=== PATIENT | male | born 1970 | race Caucasian/White ===

== ENCOUNTER 2018-08-05 16:13 | Inpatient (IN) ==
[2018-08-05] MEDS ORDERED: LORazepam 2 MG/4 ML VIAL ONE (16:32)
[2018-08-05] MEDS ORDERED: LORazepam 1 MG/2 ML VIAL IV STA (16:33)
[2018-08-05 17:13] LABS: Hemoglobin 13.7 g/dL (14.0-18.0); Mean Corpuscular Hgb Conc 34.3 g/dL (32-36); Mean Corpuscular Volume 90.5 fL (80-100); Mean Platelet Volume 11.5 fL (7.4-10.4); Platelet Count 114 K/uL (130-400); RDW Coefficient of Variation 12.8 % (11.5-14.5); RDW Standard Deviation 42.7 fL (36.4-46.3); Red Blood Count 4.42 M/uL (4.7-6.1)
[2018-08-05 17:35] LABS: Albumin Level 4.4 gm/dl (3.4-5.0); BUN Creatinine Ratio 7.5 (10-20); Calcium 9.1 mg/dl (8.5-10.1); Creatinine Clr Calc Pharmacy 32.3 ml/min; Est GFR (African American) 26.1; Est GFR (Non-African American) 22.5; Magnesium 2.4 mg/dl (1.8-2.4); Potassium 3.1 mmol/L (3.5-5.1)
[2018-08-05 17:38] LABS: Albumin Globulin Ratio 1.3 (0.9-2); Bilirubin,Total 1.2 mg/dl (0.2-1); Globulin 3.4 gm/dl (2.5-4.0); Total Protein 7.8 gm/dl (6.4-8.2)
[2018-08-05 17:47] LABS: Basophils # (auto) 0.04 K/uL (0-0.2); Basophils % (auto) 0.2 %; Eosinophils # (auto) 0.11 K/uL (0-0.5); Eosinophils % (auto) 0.5 %; Immature Granulocytes # (auto) 0.22 K/uL (0.00-0.02); Lymphocytes # (auto) 1.81 K/uL (1.2-3.4); Monocytes # (auto) 0.94 K/uL (0.11-0.59); Monocytes % (auto) 4.1 %; Neutrophils # (auto) 19.58 K/uL (1.4-6.5); Neutrophils % (auto) 86.2 %
--- NOTE | 2018-08-05 17:58 | CT Scan Report ---
CT OF THE HEAD WITHOUT CONTRAST CLINICAL HISTORY: Seizure. Weakness. COMPARISON STUDY: No previous studies for comparison. CT DOSE: 1160.96 mGy.cm TECHNIQUE: Helical axial images of the head were obtained without IV contrast. Automated exposure con trol was utilized for the study. A dose lowering technique was utilized adhering to the principles o f ALARA. FINDINGS: No acute intracranial hemorrhage, midline shift or mass effect is present. Brain volume is normal. Ventricular system is normal. The basilar cisterns are patent. There are no extra-axial colle ctions. Note is made of a 2.1 x 0.7 cm CSF attenuation focus overlying the posterior left frontal lob e. This may reflect a small arachnoid cyst. There is a 1.2 cm hypodensity within the left thalamus. N ote is made of a 1.7 cm hypodensity within the posterior limb of the left internal capsule. There are no significant calvarial abnormalities. Note is made of a 2.3 cm lipoma within the frontal scalp. IMPRESSION: 1. No acute intracranial hemorrhage or mass effect. 2. 1.2 cm hypodensity within the left thalamus. Although indeterminate, this favors a subacute to chr onic infarct. Correlation with prior imaging studies, if available, is recommended. In the absence of prior studies, an MRI of the brain with and without contrast is recommended. 3. 1.7 cm hypodensity within the posterior limb of the left internal capsule favors an old lacunar in farct or prominent perivascular space. 4. 2.1 x 0.7 cm CSF attenuation focus overlying the posterior left frontal lobe which favors an arach noid cyst. Electronically signed by: Ashkan Saldivar M.D. 08/05/2018 5:57 PM
[2018-08-05] MEDS ORDERED: LABETALOL HCL IV 5 MG/ML 20ML IV PRN (18:27)
--- NOTE | 2018-08-05 18:38 | Emergency Department Note ---
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 Per EMS, the patient was at the [facility] in [place] when he had a seizure. They note the patient is homeless. EMS states the patient's friend told them he had a headache for the past week. EMS states the friend's of the patient state the patient did not have any trauma today. EMS states the patient had recovered from his seizure and then had another seizure in the ambulance. EMS states the patient was moving all his extremities in the ambulance. EMS notes the patient was very hypertensive and he was not drinking today. EMS states the patient denied any chest pain or abdominal pain. 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 EMS notes the patient stated he smokes a pack a day. HPI is limited because the patient is sleeping. Home Medications Home Medications Medication Instructions Recorded Confirmed Type Unobtainable 08/05/18 08/05/18 History Allergies Allergy/AdvReac Type Severity Reaction Status Date / Time No Known Allergies Allergy Unverified 08/05/18 21:03 Past Med/Surg History Family History Other Family history non-contributory Social History Current Living Situation: Homeless and Other Current Living Situation Comment: lives with friend Saima García Feels Safe at Home: Yes Smoking Status: Heavy tobacco smoker Hx Alcohol Use: No Hx Substance Use: No Beliefs That Will Affect Care: None Preferred Language: Senegalese Fast Brim Pouncer Required: No Review of Systems See HPI for pertinent positives & negatives. and A total of 10 systems reviewed and were otherwise negative Physical Exam Vital Signs Vital Signs - 24 hr 08/05/18 16:56 08/05/18 17:40 08/05/18 18:35 Temperature Temperature Source Sepsis Recent Fever Within 48 Hours No Sepsis Action Taken by Nursing No Action Required Pulse Rate 119 H Pulse Rate [Right Finger] 90 90 Respiratory Rate 26 H 22 19 Respiratory Effort / Characteristics Respiratory Depth Blood Pressure 245/160 H Blood Pressure [Right Arm] 218/138 H 209/132 H Blood Pressure Mean 188 Blood Pressure Mean [Right Arm] 164 157 Blood Pressure Position [Right Arm] Lying Pulse Oximetry 91 92 98 Oxygen Delivery Method 08/05/18 19:07 08/05/18 19:52 08/05/18 20:31 Temperature 36.4 C L 36.8 C Temperature Source Oral Oral Sepsis Recent Fever Within 48 Hours Sepsis Action Taken by Nursing Pulse Rate 79 Pulse Rate [Right Finger] 77 74 Respiratory Rate 19 19 18 Respiratory Effort / Characteristics Non-Labored Spontaneous Respiratory Depth Normal Blood Pressure 195/117 H Blood Pressure [Right Arm] 212/134 H 231/137 H Blood Pressure Mean Blood Pressure Mean [Right Arm] 160 168 Blood Pressure Position [Right Arm] Pulse Oximetry 99 96 98 Oxygen Delivery Method Room Air Room Air General: Disheveled middle-age male. Patient is non-verbally responsive. He is movig all 4 extremities and starting to wake up. Patient has purposeful movements and has not active seizure. HEENT: Normal cephalic atraumatic. Pupils are equal round and reactive to light. Extraocular movements are intact. Oropharynx is pink with moist mucous membranes. No swelling of the mouth lips or tongue. Neck: Supple with a midline trachea. No meningeal signs or stiffness, no JVD or bruits. No Stridor. Chest: Clear to auscultation bilaterally. No wheezes or rhonchi. No increased work of breathing. Heart: regular rate and rhythm. Abdomen: Soft nontender, nondistended without rebound guarding or rigidity. Extremities: No cyanosis clubbing or edema. No calf tenderness or assymetry Spine/Back. Non tender to palpation. No CVA tenderness Skin: Good turgor without rashes. Neurologic exam: Cranial nerves two through 12 are intact. Motor and sensation are intact and symmetrical throughout. Course 161: Past medical records reviewed. The patient was evaluated in room C6, and a complete history and physical examination were performed. 1631: I reevaluated the patient. He is currently sleeping and starting to get combative. 1655: I reevaluated the patient. He is talking, awake, and looks better. He denies drinking any alcohol for a while. He states he did not drink today. He notes he does not have a seizure history. He states he does not have suicidal ideations and does not do drugs. 180: I reevaluated the patient. His blood pressure is still elevated but is trending downwards. He was sleeping. I woke him up and he looks less confused. 1819: I reviewed the patient's case with Dr. Ashok Grant Hospitalist. He will evaluate the patient for further management. 1837: Juanita team is currently evaluating the patient. 1924: I reevaluated the patient. He has not had any more seizures and is afebrile. Administered Medications Dextrose/Sodium Chloride (D5w And 1/2nss) 1,000 mls @ 80 mls/hr IV .[id number] ROGER Stop: 09/04/18 20:29 Last Admin: 08/05/18 21:12 Dose: 80 mls/hr Labetalol HCl (Normodyne) 10 mg IV Q6H PRN PRN Reason: blood pressure above 180/120 Stop: 09/04/18 18:26 Last Admin: 08/05/18 21:13 Dose: 10 mg Discontinued Medications Lorazepam (Ativan) 1 mg in 2 mls @ 2 mls/min IV NOW STA Stop: 08/05/18 16:34 Last Admin: 08/05/18 16:47 Dose: 2 mls/min Levetiracetam 1,000 mg/ (Dextrose) 110 mls @ 440 mls/hr IV NOW STA Stop: 08/05/18 17:17 Last Infusion: 08/05/18 17:46 Dose: 0 mls/hr Admin: 08/05/18 17:27 Dose: 440 mls/hr Potassium Chloride (K Daniel / Wtr) 10 meq in 100 mls @ 100 mls/hr IV Q1H STA Stop: 08/05/18 20:23 Last Infusion: 08/05/18 21:31 Dose: 0 mls/hr Admin: 08/05/18 20:07 Dose: 100 mls/hr Infusion: 08/05/18 20:07 Dose: 100 mls/hr Admin: 08/05/18 20:02 Dose: 100 mls/hr Labetalol HCl (Normodyne) Confirm Administered Dose 5 mg IV .STK-MED ONE Stop: 08/05/18 18:42 Last Admin: 08/05/18 19:04 Dose: 10 mg Lorazepam (Ativan) Confirm Administered Dose 2 mg .ROUTE .STK-MED ONE Stop: 08/05/18 16:33 Last Admin: 08/05/18 16:47 Dose: Not Given Miscellaneous Information (Patient's Allergy Info Needs Entered) 1 ea N/A Q30M ROGER Stop: 09/04/18 20:14 Last Admin: 08/05/18 21:42 Dose: 1 ea Admin: 08/05/18 21:04 Dose: 1 ea Medical Decision Making Differential Diagnosis Differential Diagnosis includes: seizure, intracranial process, alcohol use or withdrawal, toxicological process, trauma, and electrolyte or metabolic abnormality. Medical Records Attestation: I reviewed the patient's medical records. Home Medications Current Medication List: was personally reviewed by me Laboratory Data Attestation: I reviewed the patient's lab results. Result diagrams: 08/05/18 16:53 08/05/18 16:53 Lab Results 08/05/18 08/05/18 08/05/18 Range/Units 16:53 16:53 16:53 WBC 22.70 H (4.8-10.8) K/uL RBC 4.42 L (4.7-6.1) M/uL Hgb 13.7 L (14.0-18.0) g/dL Hct 40.0 L (42-52) % MCV 90.5 (80-100) fL MCH 31.0 (25-34) pg MCHC 34.3 (32-36) g/dL RDW Std Deviation 42.7 (36.4-46.3) fL RDW Coeff of Zahraa 12.8 (11.5-14.5) % Plt Count 114 L (130-400) K/uL MPV 11.5 H (7.4-10.4) fL Immature Gran % (Auto) 1.0 % Neut % (Auto) 86.2 % Lymph % (Auto) 8.0 % [place] % (Auto) 4.1 % Eos % (Auto) 0.5 % Baso % (Auto) 0.2 % Immature Gran # (Auto) 0.22 H (0.00-0.02) K/uL Neut # (Auto) 19.58 H (1.4-6.5) K/uL Lymph # (Auto) 1.81 (1.2-3.4) K/uL [place]ima # (Auto) 0.94 H (0.11-0.59) K/uL Eos # (Auto) 0.11 (0-0.5) K/uL Baso # (Auto) 0.04 (0-0.2) K/uL Sodium 134 L (136-145) mmol/L Potassium 3.1 L (3.5-5.1) mmol/L Chloride 98 (98-107) mmol/L Carbon Dioxide 18 L (21-32) mmol/L Anion Gap 18.0 H (3-11) BUN 24 H (7-18) mg/dl Creatinine 3.14 H (0.6-1.4) mg/dl Est Cr Clr Drug Dosing 32.3 ml/min Est GFR ( Amer) 26.1 Est GFR (Non-Af Amer) 22.5 BUN/Creatinine Ratio 7.5 L (10-20) Glucose 187 H (70-99) mg/dl Lactate (0.4-2.0) mmol/L Calcium 9.1 (8.5-10.1) mg/dl Magnesium 2.4 (1.8-2.4) mg/dl Total Bilirubin 1.2 H (0.2-1) mg/dl AST 33 (15-37) U/L ALT 22 (12-78) U/L Alkaline Phosphatase 106 (45-117) U/L Total Creatine Kinase (39-308) U/L Total Protein 7.8 (6.4-8.2) gm/dl Albumin 4.4 (3.4-5.0) gm/dl Globulin 3.4 (2.5-4.0) gm/dl Albumin/Globulin Ratio 1.3 (0.9-2) Ethyl Alcohol mg/dL < 3.0 (0-3) mg/dl 08/05/18 08/05/18 Range/Units 16:53 18:45 WBC (4.8-10.8) K/uL RBC (4.7-6.1) M/uL Hgb (14.0-18.0) g/dL Hct (42-52) % MCV (80-100) fL MCH (25-34) pg MCHC (32-36) g/dL RDW Std Deviation (36.4-46.3) fL RDW Coeff of Zahraa (11.5-14.5) % Plt Count (130-400) K/uL MPV (7.4-10.4) fL Immature Gran % (Auto) % Neut % (Auto) % Lymph % (Auto) % [place]ima % (Auto) % Eos % (Auto) % Baso % (Auto) % Immature Gran # (Auto) (0.00-0.02) K/uL Neut # (Auto) (1.4-6.5) K/uL Lymph # (Auto) (1.2-3.4) K/uL Pima # (Auto) (0.11-0.59) K/uL Eos # (Auto) (0-0.5) K/uL Baso # (Auto) (0-0.2) K/uL Sodium (136-145) mmol/L Potassium (3.5-5.1) mmol/L Chloride (98-107) mmol/L Carbon Dioxide (21-32) mmol/L Anion Gap (3-11) BUN (7-18) mg/dl Creatinine (0.6-1.4) mg/dl Est Cr Clr Drug Dosing ml/min Est GFR ( Amer) Est GFR (Non-Af Amer) BUN/Creatinine Ratio (10-20) Glucose (70-99) mg/dl Lactate 2.5 H* (0.4-2.0) mmol/L Calcium (8.5-10.1) mg/dl Magnesium (1.8-2.4) mg/dl Total Bilirubin (0.2-1) mg/dl AST (15-37) U/L ALT (12-78) U/L Alkaline Phosphatase (45-117) U/L Total Creatine Kinase 171 (39-308) U/L Total Protein (6.4-8.2) gm/dl Albumin (3.4-5.0) gm/dl Globulin (2.5-4.0) gm/dl Albumin/Globulin Ratio (0.9-2) Ethyl Alcohol mg/dL (0-3) mg/dl Imaging Data Radiologist's Impression: Radiology results as stated below per my review and the radiologist's interpretation: CT OF THE HEAD WITHOUT CONTRAST CLINICAL HISTORY: Seizure. Weakness. COMPARISON STUDY: No previous studies for comparison. CT DOSE: 1160.96 mGy.cm TECHNIQUE: Helical axial images of the head were obtained without IV contrast. Automated exposure control was utilized for the study. A dose lowering technique was utilized adhering to the principles of ALARA. FINDINGS: No acute intracranial hemorrhage, midline shift or mass effect is present. Brain volume is normal. Ventricular system is normal. The basilar cisterns are patent. There are no extra-axial collections. Note is made of a 2.1 x 0.7 cm CSF attenuation focus overlying the posterior left frontal lobe. This may reflect a small arachnoid cyst. There is a 1.2 cm hypodensity within the left thalamus. Note is made of a 1.7 cm hypodensity within the posterior limb of the left internal capsule. There are no significant calvarial abnormalities. Note is made of a 2.3 cm lipoma within the frontal scalp. IMPRESSION: 1. No acute intracranial hemorrhage or mass effect. 2. 1.2 cm hypodensity within the left thalamus. Although indeterminate, this favors a subacute to chronic infarct. Correlation with prior imaging studies, if available, is recommended. In the absence of prior studies, an MRI of the brain with and without contrast is recommended. 3. 1.7 cm hypodensity within the posterior limb of the left internal capsule favors an old lacunar infarct or prominent perivascular space. 4. 2.1 x 0.7 cm CSF attenuation focus overlying the posterior left frontal lobe which favors an arachnoid cyst. Electronically signed by: Ashkan Saldivar M.D. 08/05/2018 5:57 PM ECG Data Attestation: I personally reviewed and interpreted this ECG as follows: Indication: other (seizure) Rate (beats per minute): 86 Rhythm: sinus rhythm Findings: + other (LVH and no prolonged QT at 502) and + nonspecific-ST abn Comparison ECG Date: no prior available Blood Pressure Blood Pressure Findings: Elevated blood pressure Blood Pressure Disposition: further management by hospitalist [facility] Narrative This patient comes in as described above. He apparently was in his usual state of health and went to a bar . he did not drink and then had a seizure and EMS was summoned. he apparently got postictal and confused but then came around and had another seizure. They did give him 2 mg of Versed IV. Upon arrival in the ER he initially is postictal but he is moving all 4 extremities starting to wake up but nonverbal, he has no seizure activity. While he was observed in the ER, he was given additional 1 mg IV Ativan as he was agitated initially but then became cooperative and answering questions appropriately. He denies that he has had any trauma. he has not had any alcohol for quite some time he tells me. Denies drug use or thoughts of hurting himself denies chest pain or shortness of breath. Denies seizure history. He cannot recall when the last time he saw a primary care doctor was. He denies headache or neck pain at present. IV access was established and blood work was obtained EMS did check him and his blood sugar was normal on route he was also had a normal temperature. He is also afebrile here and there is nothing to make me think infection at this point. He has no meningeal signs or stiffness in his neck is freely mobile. He denies a headache at this point. I did a CAT scan of his head there is no acute processes. There some subacute to chronic possible infarcts. The patient's blood pressure was very high initially although he was combative at the time. It is trending down work but may need further treatment . I am concerned that is probably chronically elevated. I am also concerned his renal function is is elevated with a creatinine of 3.1. He does not recall having any kidney problems. EKG does not suggest acute coronary syndrome or arrhythmia. He was loaded with Keppra 1 g IV given the fact that he had 2 seizures prior to arrival. He has been observed in the ER. If he truly has not had alcohol for several weeks this is unlikely related to alcohol. He is not having any tremor to suggest withdrawal but that would still be in consideration. I do think he needs to be admitted/observed for further treatment and evaluation. His blood pressure has been elevated and itis possible that this could be causing his symptoms as well. The admitting team did see him and have ordered some IV labetalol. I do think he needs to have this monitored on the inpatient service as well. Impression & Plan Seizure, Renal failure, Hypertension, Post-ictal state Critical Care Time I have personally spent greater than 30 minutes of critical care time in the direct management of this patient. This includes bedside care, interpretation of diagnostic studies, and testing, discussion with consultants, patient, and family members, and other required patient management activities. This 30 minutes is in excess of all separately billable procedures. Critical Care Time: Yes Total Critical Care Time: 30 Discharge Plan Visit Data *Final* Discharge Date/Time: 08/05/18 19:52 Chief Complaint: Seizure Stated Complaint: SEIZURE ED Provider: Brad Santana Discharge Problem: Seizure, Renal failure, Hypertension, Post-ictal state Patient Disposition: Admitted As Inpatient Discharge Instructions Interventions: ED Discharge Assessment Last Done: 08/05/18 19:52 The scribe's documentation has been prepared under my direction and personally reviewed by me in its entirety. I confirm that the note above accurately reflects all work, treatment, procedures, and medical decision making performed by me.
[2018-08-05] MEDS: LABETALOL HCL IV 5 MG/ML 20ML IV ONE ×2 (19:01→19:04)
--- NOTE | 2018-08-05 19:04 | History & Physical Report ---
Date of Service August 05, 2018 Assessment & Plan (1) Seizure: as per history there was have been seizure x 2 loaded with Keppra 1000 mg will follow creatinine kinase and lactic acid leukocytosis of 22,000 - may be leukocytosis from seizure, will draw blood cultures. is afebrile for now and will hold off antibiotics unless patient spikes fevers blood cultures drawn Hypokalemia: correct hypokalemia of 3.1 - give potassium IV riders check serum magnesium levels admit to telemetry, ICU physician has been informed and updated in cased there is a chance patient needs to be intubated if seizure again neuro checks on telemetry duarte for now aspiration precautions NPO excepts meds/ sips/chips for now speech and swallow evaluation neurology consultation requested obtain echocardiogram PT/OT admission Head CT 1. No acute intracranial hemorrhage or mass effect. 2. 1.2 cm hypodensity within the left thalamus. Although indeterminate, this favors a subacute to chronic infarct. 3. 1.7 cm hypodensity within the posterior limb of the left internal capsule favors an old lacunar infarct or prominent perivascular space. 4. 2.1 x 0.7 cm CSF attenuation focus overlying the posterior left frontal lobe which favors an arachnoid cyst. Questionable old strokes as above outside of window for TPA get lipid panel and HbA1c neuro checks on telemetry duarte for now aspiration precautions NPO excepts meds/ sips/chips for now speech and swallow evaluation neurology consultation requested obtain echocardiogram PT/OT Hypertensive Emergency hypertension may be from seizures initially 235/116 in ED, when seen by hospitalist blood pressure 209/132 give labetalol 10 mg q6 hours when blood presure above 180/120, alternative hydralzine can be used to gently lower blood pressures (2) Renal failure: creatinine 3.14 given lack of recents labs, there is no comparison to see whether this is acute renal failure or chronic kidney disease will give gentle hydration of D5 water 1/2 normal saline Full Code as per my discussion with patient Social Issues patient reports he lives in [place] with female friend Susana Mack patient reports his mother lives in [place] will get Case management History of Present Illness Primary Care Provider: NO PCP History as per ED notes, ER physician, and patient As per ED History and Physical "The patient is a 48 year old male who presents to the Emergency Room with complaints of intermittent seizures. Per EMS, the patient was at the [facility] in [place] when he had a seizure. They note the patient is homeless. EMS states the patient's friend told them he had a headache for the past week. EMS states the friend's of the patient state the patient did not have any trauma today. EMS states the patient had recovered from his seizure and then had another seizure in the ambulance. EMS states the patient was moving all his extremities in the ambulance. EMS notes the patient was very hypertensive and he was not drinking today. EMS states the patient denied any chest pain or abdominal pain. 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 EMS notes the patient stated he smokes a pack a day. HPI is limited because the patient is sleeping." As per ED physician, patient had second seizure in the ED. Patient has been given Keppa 1000 mg IV by ED physician. Also noted to be hypertensive and initially 235/116 when seen by hospitalist blood pressure 209/132 Patient able to speak to hospitalist and offer some history but has trouble with concentration. able to follow directions Patient reports not seeing a doctor in years. denies being on medication. denies alcohol abuse. denies history of alcohol withdrawal. denies history of strokes. denies history of seizures. denies recreational drugs. denies tobacco. denies allergies or family history of of health problems Home Medications Home Medications Medication Instructions Recorded Confirmed Type Unobtainable 08/05/18 08/05/18 History Past Med/Surg History Family History Other Family history non-contributory Social History Feels Safe at Home: Yes Smoking Status: Unknown if ever smoked Review of Systems All systems reviewed & are unremarkable except as noted in HPI & below Physical Exam 2 Vital Signs (Past 24 Hours): Last Vital Signs Pulse 90 08/05/18 18:35 Resp 19 08/05/18 18:35 BP 209/132 H 08/05/18 18:35 Pulse Ox 98 08/05/18 18:35 Eyes: PERRL, conjunctivae normal, anicteric sclerae normal visual tabares by confrontation and EOM intact bilaterally ENMT: external ear and nose normal, oropharynx normal Neck: normal visual inspection and trachea midline Respiratory: normal respiratory effort, lungs clear to auscultation Cardiovascular: RRR, no murmur, no edema Gastrointestinal (Abdomen): normal bowel sounds, soft, nontender, no hepatosplenomegaly Musculoskeletal: Head/Neck/Chest: normocephalic and head atraumatic Neurologic: PERRL, EOMI, accommodation nl, no face palsy, no dysarthria Psychiatric: Orientation: alert and oriented to person _ (1) Renal failure Acute renal failure type: Chronic kidney disease stage: Renal failure chronicity: unspecified chronicity Qualified Code(s): N19 - Unspecified kidney failure
[2018-08-05] MEDS: POTASSIUM CHLORIDE / WTR 10 MEQ/100 ML PLCT IV STA ×2 (20:02→20:07)
[2018-08-05] MEDS ORDERED: ONDANSETRON INJ 2 MG/ML 2 ML VIAL IV PRN (20:42)
[2018-08-05] MEDS ORDERED: LORazepam 2 MG/4 ML VIAL IV PRN (20:42)
[2018-08-05] MEDS: PATIENT'S ALLERGY INFO NEEDS ENTERED SCH ×2 (21:04→21:42)
[2018-08-05] MEDS: D5W AND 1/2NSS 1,000 ML IV SCH (21:12)
[2018-08-05 23:28] LABS: BUN Creatinine Ratio 9.4 (10-20); Calcium 8.7 mg/dl (8.5-10.1); Creatinine Clr Calc Pharmacy 35.4 ml/min; Est GFR (African American) 31.5; Est GFR (Non-African American) 27.2; Magnesium 2.6 mg/dl (1.8-2.4); Potassium 3.2 mmol/L (3.5-5.1)
[2018-08-05] MEDS ORDERED: HydrALAZINE HCL 20 MG/ML VIAL IV STA (23:34)
[2018-08-05] MEDS ORDERED: HydrALAZINE HCL 20 MG/ML VIAL IV PRN (23:34)
[2018-08-05 23:39] LABS: Troponin I 0.265 ng/ml (0-0.045)
[2018-08-06] MEDS ORDERED: cloNIDine HCL 0.1 MG/24 HR TRANSDERM SYS TD SCH
[2018-08-06] MEDS ORDERED: ICU PROTOCOL FOR HYPERGLYCEMIA PRN (04:45)
--- NOTE | 2018-08-06 04:53 | Critical Care Consultation ---
Date of Consultation August 06, 2018 Assessment & Plan (1) Admitted to intensive care unit: Reason Critically Ill: 48-year-old male presenting with seizures x2 with hypertensive urgency and refractory hypertension requiring nicardipine drip. NEURO - * CAM ICU: NEGATIVE * Seizures: * 2 separate episodes with postictal status appreciated. * Received Keppra in the emergency department. Continue with loading doses. * CT of the head in the emergency department suggestive of possible subacute infarct. * Will add MRI/MRA for evaluation of possible underlying CVA pathology contributing to presentation. * Appreciate neurology consult. * Monitor closely through breakthrough seizure-like activity. * Will allow for permissive hypertension with pressures in the 160s-170s given presentation and concern for possible underlying CVA. CARDIAC/VASCULAR - * Hypertensive emergency: * Initially received multiple medications on the floor. * Continue with nicardipine drip. * Will allow for permissive hypertension. * Monitor on telemetry. RESPIRATORY - * No history of pulmonary disease. * Will monitor for any changes. GI/NUTRITION - * Progress diet as tolerated. RENAL/LYTES - * Acute renal failure: * Continue with IV fluids. * Replace electrolytes as tolerated. - * Strict I&O's. ENDO - * No history of diabetes or thyroid disease. * BSGs per unit protocol. ISS --> gtt per unit policy. HEME - * Stable H&H. * Leukopenia likely stress reaction. ID - * No concerns for infectious ideologies at this point. LINES/IV ACCESS - * PIVs x2 DVT PROPHYLAXIS - * SCDs I have personally spent 60 minutes of critical care time in the direct management of this patient. This is a life/limb threatening event. This includes time spent evaluating patient, direct bedside care, chart review, placing orders, interpretation of diagnostic studies, discussion with consultants, patient, and family members, as well as other required patient management activities. This time is exclusive of all separately billable procedures, and teaching time and separate from and in addition to any other critical care service time. Thank you for allowing us to participate in the care of this patient. Please refer to my attending physician's documentation for any further recommendations. (2) Hypertensive urgency: (3) Seizure: (4) Renal failure: (5) Encephalopathy acute: Supervising Physician Co-Signing Physician Notes I have personally evaluated and examined this patient. I agree with assessment and plan of Jayashree Arriaza PA-C. Patient has had cerebrovascular pathology question press versus CVA I agree with lowering blood pressure slowly goal systolic 160-180 today will lower blood pressure more aggressively tomorrow. Start aspirin for antiplatelet therapy. Unable to assess vasculature secondary to creatinine ordered carotid ultrasound. I suspect that this is all secondary to renal vascular disease and chronic hypertension. Echo is still pending at this point. I have personally spent 40 minutes of critical care time in the direct management of this patient. This is a life/limb threatening event. This includes time spent evaluating patient, direct bedside care, chart review, placing orders, interpretation of diagnostic studies, discussion with consultants, patient, and/or family members regarding treatment decisions, as well as other required patient management activities. This time is exclusive of all separately billable procedures, and teaching time and separate from and in addition to any other critical care service time. History of Present Illness Attending Physician: Ranjith Pulido MD Patient is a 48-year-old male with a reported remote history of hypertension who presented to the emergency department yesterday with seizure activity x2. Apparently, the patient was at a local [employer] when he had what was described as a generalized seizure. In route to the emergency department, the patient had a second episode of seizure. He had been loaded with Keppra with no further activity appreciated. CT the head demonstrated possible old infarct versus subacute findings. Patient was found to be moderately hypertensive. He was admitted to the telemetry floor with continued goals for hypertension management. Throughout the night, the patient had persistent hypertension which was refractory to multiple interventions. Eventually, the patient was placed on nicardipine drip and subsequently transferred to the ICU for continued evaluation and management. On evaluation in the ICU, the patient is awake, alert, and oriented. The markus jimenez does appear to have issues with word finding and complains of diffuse pain, particular in his back. Otherwise, he has no focal neurological deficits. He currently denies any headaches, dizziness, blurry vision, chest pain, palpitations, shortness of breath, nausea, vomiting, or abdominal pain. Allergies Allergy/AdvReac Type Severity Reaction Status Date / Time No Known Allergies Allergy Unverified 08/05/18 21:03 Home Medications Home Medications Medication Instructions Recorded Confirmed Type Unobtainable 08/05/18 08/05/18 History Patient History Family History Other Family history non-contributory Social History Current Living Situation: Homeless and Other Current Living Situation Comment: lives with friend Saima García Feels Safe at Home: Yes Smoking Status: Heavy tobacco smoker Hx Alcohol Use: No Hx Substance Use: No Beliefs That Will Affect Care: None Preferred Language: Angolan Neonatologist Required: No Review of Systems A complete 10 point review of systems was reviewed with the patient with pertinent positives and negatives as per history of present illness. All else were negative. Physical Exam Vital Signs (Past 24 Hours): Last Vital Signs Temp 36.2 C L 08/06/18 03:00 Pulse 84 08/06/18 03:40 Resp 18 08/06/18 03:00 BP 157/100 H 08/06/18 03:40 Pulse Ox 100 08/05/18 23:00 Physical Exam: VITAL SIGNS - Vital signs and nursing notes were reviewed. GENERAL - 48-year-old male appearing his stated age who is in no acute distress. Communicates and answers questions appropriately. Does appear to have issues with word finding. SKIN - Without rashes. HEAD - NC/AT. EYES - PERRL with EOMI bilaterally. Sclera anicteric. Palpebral conjunctiva pink and moist with no injection noted. EARS - No deformities of external structures noted on gross examination bilaterally. No pain elicited with palpation of the tragus bilaterally. External auditory canals without discharge or otorrhea. NOSE - Midline and without cyanosis. No epistaxis or purulent drainage noted. MOUTH/OROPHARYNX - Without perioral cyanosis. Buccal mucosa pink and dry. Tongue midline with equal elevation of palate bilaterally. No tonsillar hypertrophy, erythema, or exudates noted. NECK - Neck with FROM. Supple to palpation. No lymphadenopathy noted. No nuchal rigidity. LUNGS - Chest wall symmetric without accessory muscle use, intercostals retractions, or central cyanosis. Normal vesicular breath sounds CTA B/L. No wheezes, rales, or rhonchi appreciated. CARDIAC - RRR with S1/S2. No murmur, rubs, or gallops appreciated. ABDOMEN - Abdominal contour flat without pulsations or visible masses. BS normoactive all four quadrants. No tenderness, palpable masses, hep atosplenomegaly, or ascites noted. EXTREMITIES - No clubbing or peripheral cyanosis. No pretibial edema present. +3/5 radial, posterior tibial, and dorsalis pedis pulses palpated throughout. +5/5 strength noted in UE/LE bilaterally. NEUROLOGIC - Cranial nerves II through XII grossly intact. Sensory intact to light touch throughout. Patellar reflexes +2/4. PSYCH - A&Ox3 and cooperates fully with examiner. Pt is very pleasant and interacts well with examiner. Appears to have difficulty with word finding. (1) Renal failure Acute renal failure type: Chronic kidney disease stage: Renal failure chronicity: unspecified chronicity Qualified Code(s): N19 - Unspecified kidney failure
[2018-08-06 05:08] LABS: BUN Creatinine Ratio 9.5 (10-20); Calcium 8.9 mg/dl (8.5-10.1); Creatinine Clr Calc Pharmacy 35.7 ml/min; Est GFR (African American) 31.8; Est GFR (Non-African American) 27.4; Magnesium 2.4 mg/dl (1.8-2.4); Potassium 2.9 mmol/L (3.5-5.1)
[2018-08-06 05:15] LABS: Basophils # (auto) 0.03 K/uL (0-0.2); Basophils % (auto) 0.2 %; Eosinophils # (auto) 0.04 K/uL (0-0.5); Eosinophils % (auto) 0.2 %; Hematocrit (blood only) 36.8 % (42-52); Hemoglobin 12.9 g/dL (14.0-18.0); Immature Granulocytes # (auto) 0.06 K/uL (0.00-0.02); Immature Granulocytes % (auto) 0.3 %; Lymphocytes # (auto) 1.76 K/uL (1.2-3.4); Lymphocytes % (auto) 9.7 %; Mean Corpuscular Hgb Conc 35.1 g/dL (32-36); Mean Corpuscular Volume 88.9 fL (80-100); Mean Platelet Volume 12.2 fL (7.4-10.4); Monocytes # (auto) 1.13 K/uL (0.11-0.59); Monocytes % (auto) 6.2 %; Neutrophils # (auto) 15.21 K/uL (1.4-6.5); Neutrophils % (auto) 83.4 %; Platelet Count 87 K/uL (130-400); Platelet Estimate Decreased (Normal); RBC Morphology Unremarkable; RDW Coefficient of Variation 12.8 % (11.5-14.5); RDW Standard Deviation 41.6 fL (36.4-46.3); Red Blood Count 4.14 M/uL (4.7-6.1); White Blood Count 18.23 K/uL (4.8-10.8)
[2018-08-06 05:22] LABS: Albumin Globulin Ratio 1.2 (0.9-2); Bilirubin,Total 1.1 mg/dl (0.2-1); Globulin 3.3 gm/dl (2.5-4.0); Total Protein 7.3 gm/dl (6.4-8.2); Troponin I 0.198 ng/ml (0-0.045)
--- NOTE | 2018-08-06 06:23 | Ultrasound Report ---
Study: Duplex renal arterial Doppler. HISTORY:. Hypertension. Renal insufficiency. FINDINGS: Very limited study as patient could not cooperate with the exam. Kidneys. Negative for hydr onephrosis. Increased cortical echogenicity. No evidence for hydronephrosis. Doppler evaluation of the study is considered nondiagnostic. IMPRESSION: 1. Limited study due to the patient's inability to cooperate. 2. Echogenic renal cortices bilaterally suggesting renal insufficiency. 2. No evidence for hydronephrosis. 3. Nondiagnostic Doppler evaluation of the renal arterial vasculature Electronically signed by: Scotty Meng M.D. 08/06/2018 6:22 AM
[2018-08-06 06:49] LABS: Amphetamines+Metham, Urine Neg (Neg); Barbiturates, Urine Neg (Neg); Benzodiazepine, Urine Pos (Neg); Cocaine, Urine Neg (Neg); MDMA (Ecstacy), Urine Neg (Neg); Methadone, Urine Neg (Neg); Opiate, Urine Neg (Neg); Phencyclidine, Urine Neg (Neg)
[2018-08-06 06:57] LABS: Appearance Urine Clear (Clear); Bacteria Urine Automated Negative (Negative); Bilirubin Urine Negative (Negative); Blood Urine 2+ (Negative); Color Urine Yellow; Epithelial Cell Urine Auto >30 /lpf (0-5); Glucose Urine UA Trace (Negative); Ketones Urine Negative (Negative); Leukocyte Esterase Urine Negative (Negative); Nitrite Urine Negative (Negative); Protein Urine 3+ (Negative); RBC Urine Automated 0-4 /hpf (0-4); Specific Gravity Urine 1.019 (1.000-1.030); Urobilinogen Urine Negative (Negative)
[2018-08-06 06:58] LABS: Estimated Average Glucose 88 mg/dl; Hemoglobin A1C 4.7 % (4.5-5.6)
--- NOTE | 2018-08-06 07:07 | Magnetic Resonance Report ---
MRI OF THE BRAIN WITHOUT CONTRAST CLINICAL HISTORY: Seizure, weakness, suspected stroke. COMPARISON STUDY: Noncontrast head CT dated 08/05/2018 FINDINGS: Sagittal T1, axial diffusion, proton density and T2 weighted axial, coronal FLAIR, and axial T1-weigh ac images were acquired. No intra or extra-axial mass lesions are visualized There are foci project water diffusion within the left thalamus, and punctate foci project water diff usion just superior to the left lateral ventricle. The findings are consistent with acute/subacute in farcts. There are also equivocal foci restricted water diffusion within neck supple lobes left greate r than right. There is no evidence of ventricular dilatation. Proton density T2-weighted and FLAIR images reveal foci of increased T2 signal within the left thalam us consistent with the acute/subacute infarct. There is an old infarct involving the left external ca psule. There are scattered foci of increased T2 signal within the white matter, likely a small vessel basis. Note also is made of pontine pallor. There is increased FLAIR signal within the occipital lob es left greater than right. This could indicate subacute infarcts or PRESS. 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 There are no abnormal flow voids. The study is significantly limited secondary to motion artifact. IMPRESSION: 1. Significantly compromised study secondary to motion artifact 2. Acute/subacute infarcts involving the left thalamus and deep white matter just superior to the lef t lateral ventricle 3. Signal abnormalities within both occipital lobes left greater than right with equivocal restricted water diffusion. The findings could represent additional acute/subacute infarcts or PRESS. 4. Frontal scalp lipoma 5. A follow-up MRI is recommended given the abnormalities described above and the technical limitatio ns of the current study. Electronically signed by: Yoan Ortiz M.D. 08/06/2018 7:05 AM
--- NOTE | 2018-08-06 07:09 | Magnetic Resonance Report ---
MR angio head wo con HISTORY: Stroke cva eval TECHNIQUE: 3-D [id number] MRA of the brain was performed without contrast. COMPARISON STUDY: CT brain 08/05/2018 FINDINGS: Limited study due to severe patient motion. Vertebral basilar system appears grossly unrema rkable. There is suggestion of multifocal narrowing of the middle cerebral arterial vasculature. Ante rior cerebral circulation is poorly seen IMPRESSION: 1. Near nondiagnostic study due to considerable patient motion. 2. Grossly unremarkable vertebral basilar system. 3. Probable multifocal narrowing of the middle cerebral arterial vasculature. 4. Nondiagnostic evaluation of the anterior cerebral vasculature. The above report was generated using voice recognition software. It may contain grammatical, syntax or spelling errors. Electronically signed by: Scotty Meng M.D. 08/06/2018 7:08 AM
[2018-08-06] MEDS ORDERED: CHECK CLONIDINE PATCH PLACEMENT SCH (08:00)
--- NOTE | 2018-08-06 08:57 | Ultrasound Report ---
BILATERAL CAROTID DOPPLER STUDY HISTORY: neurologic changes COMPARISON: None. TECHNIQUE: Real-time, grayscale, and color Doppler sonography of the carotid arteries was performed. Imaging reviewed in the transverse and longitudinal planes. All measurements were calculated based on NASCET criteria. FINDINGS: Antegrade flow is seen in the bilateral vertebral arteries. The brachial pressures are hemodynamically similar. The peak systolic velocity within the right ICA is 60 cm/s. The right systolic ratio is 0.8. The peak systolic velocity within the left ICA is 60 cm/s. The left systolic ratio is 0.7. IMPRESSION: No hemodynamically significant stenosis seen within the carotid arteries. Electronically signed by: Aldo Trujillo M.D. 08/06/2018 8:56 AM
[2018-08-06] MEDS: POTASSIUM CHLORIDE / WTR 10 MEQ/100 ML PLCT IV SCH ×7 (09:13→23:34)
[2018-08-06 09:37] LABS: Prothrombin Time 10.3 Seconds (9.0-12.0)
[2018-08-06] MEDS: NORMOSOL-R 1,000 ML IV SCH ×2 (10:05→20:07)
[2018-08-06] MEDS: ASPIRIN 81 MG ECTAB PO SCH (10:06)
[2018-08-06] MEDS: D5W AND 1/2NSS 1,000 ML IV SCH (10:12)
--- NOTE | 2018-08-06 10:17 | Nephrology Consultation ---
Date of Consultation August 06, 2018 Assessment & Plan (1) HANS (acute kidney injury): Patient with acute kidney injury likely due to ischemic ATN in setting of NSAIDs. Urine sediment showed a few muddy brown casts consistent with ATN. He may have had periods of reduced renal perfusion during the seizures. We do not have clear baseline. Creatinine slightly better today at 2.6. He has no hydronephrosis based on the renal duplex. Monitor daily BMP, avoid nephrotoxins. We discussed need to avoid NSAIDs completely going forward. (2) Hypertensive urgency: Patient with hypertensive urgency in setting of not taking medications. He has hypokalemia and will order renin aldosterone ratio. Blood pressure is controlled on nicardipine drip. We will consider transitioning to p.o. meds tomorrow likely a calcium channel blockers and thiazides (3) Hypokalemia: Unclear etiology. Will check renin aldosterone ratio. Recommend potassium chloride 40 mEq p.o. today. (4) Seizure: Controlled on Keppra. Patient has some evidence of subacute infarcts on brain CT. Agree with permissive hypertension History of Present Illness Reason for Consultation: Acute kidney injury, hypertensive urgency Requesting Physician: Ranjith Pulido MD Attending Physician: Ranjith Pulido MD History of Present Illness This is a 48-year-old male with history of hypertension who has not been taking medications for a long time who was admitted yesterday with altered mental status and seizures. Patient does not see doctors on a regular basis and does not have any baseline labs. He had a creatinine of 3.1 on 08/05/2018 and now down to 2.6 today. We are consulted for etiology and management of his acute kidney injury. This morning patient is awake and able to give history. He reports he was at a friend's house and does not recall events after that. But reportedly had a seizure at home and a second seizure en route to the hospital. In the ED he had severe hypertension with systolic in the 200s. He is now in the ICU on nicardipine drip and blood pressure is fairly well controlled in the 150s. He reported taking ibuprofen on a regular basis but denied urinary symptoms. CT of the brain is showing some areas of infarction which is subacute. He had a renal duplex which was nondiagnostic but did show echogenic kidneys. Patient denied any shortness of breath or lower extremity swelling. He is complaining of fatigue. Allergies Allergy/AdvReac Type Severity Reaction Status Date / Time No Known Allergies Allergy Unverified 08/05/18 21:03 Home Medications Home Medications Medication Instructions Recorded Confirmed Type Unobtainable 08/05/18 08/05/18 History Patient History Family History Other Family history non-contributory Social History Current Living Situation: Homeless and Other Current Living Situation Comment: lives with friend Saima García Feels Safe at Home: Yes Smoking Status: Heavy tobacco smoker Hx Alcohol Use: No Hx Substance Use: No Beliefs That Will Affect Care: None Preferred Language: Nauruan Senior Label Specialist Required: No Review of Systems Constitutional: + fatigue and + weakness Eyes: no problem reported Respiratory: no cough and no dyspnea Cardiovascular: no chest pain, no chest pain with activity and no dyspnea at rest Gastrointestinal: no abdominal pain and no vomiting Genitourinary (Male): no urinary frequency, no urinary hesitancy, no post-void dribbling and no nocturia Musculoskeletal: no joint pain and no stiffness Endocrine: no polydipsia and no cold intolerance Hematologic / Lymphatic: no easy bleeding and no coagulopathy Physical Exam 2 Vital Signs (Past 24 Hours): Last Vital Signs Temp 36.7 C 08/06/18 03:45 Pulse 89 08/06/18 05:45 Resp 18 08/06/18 05:45 BP 161/89 H 08/06/18 05:45 Pulse Ox 98 08/06/18 05:45 Physical Exam: General exam: Appears comfortable, no acute distress HEENT: Pupils are equal and reactive to light Neck: No JVD, neck is supple trachea is midline Respiratory system: Clear breath sounds bilaterally. Gastrointestinal: Abdomen is soft, non distended, non tender, bowel sounds are present CVS: Regular rate and rhythm. No murmurs, rubs or gallops Musculoskeletal: No joint or muscle tenderness Extremities: Non tender, no edema, peripheral pulses are present Neuro: Oriented, no tremors, Able to move all extremities Skin: No rashes Results & Data Laboratory Results Reviewed including WBC of 18, potassium of 2.9 and a creatinine of 2.6 Urine microscopy reviewed by myself shows 5 WBCs per high-power field, 2-5 RBCs per high-power field, numerous calcium oxalate crystals and few muddy brown casts Diagnostic Findings Renal duplex shows echogenic kidneys but nondiagnostic
--- NOTE | 2018-08-06 11:52 | Procedure Note ---
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 Home Medication List Home Medications Medication Instructions Recorded Confirmed Type Unobtainable 08/05/18 08/05/18 History Inpatient Medication List Aspirin (Ecotrin Ectab) 81 mg PO QAM ROGER Stop: 09/05/18 10:29 Last Admin: 08/06/18 10:06 Dose: 81 mg Levetiracetam 1,000 mg/ (Dextrose) 110 mls @ 440 mls/hr IV DAILY ROGER Stop: 09/05/18 08:59 Last Infusion: 08/06/18 10:02 Dose: 0 mls/hr Admin: 08/06/18 09:12 Dose: 440 mls/hr Nicardipine HCl 25 mg/ Sodium (Chloride) 250 mls @ 75 mls/hr IV .Q3H20M ROGER; Protocol Stop: 09/05/18 04:32 Last Admin: 08/06/18 11:20 Dose: Not Given Admin: 08/06/18 11:18 Dose: Not Given Titration: 08/06/18 10:43 Dose: 7.5 mg/hr, 75 mls/hr Admin: 08/06/18 10:02 Dose: 5 mg/hr, 50 mls/hr Titration: 08/06/18 10:02 Dose: 5 mg/hr, 50 mls/hr Admin: 08/06/18 05:19 Dose: 5 mg/hr, 50 mls/hr Potassium Chloride (K Daniel / Wtr) 10 meq in 100 mls @ 100 mls/hr IV Q1H ROGER Stop: 08/06/18 14:59 Last Admin: 08/06/18 11:17 Dose: 100 mls/hr Infusion: 08/06/18 11:09 Dose: 100 mls/hr Admin: 08/06/18 10:09 Dose: 100 mls/hr Infusion: 08/06/18 10:09 Dose: 100 mls/hr Admin: 08/06/18 09:13 Dose: 100 mls/hr Parenteral Electrolytes (Normosol-R) 1,000 mls @ 100 mls/hr IV .Q10H ROGER Stop: 09/05/18 09:59 Last Admin: 08/06/18 10:05 Dose: 100 mls/hr Discontinued Medications Clonidine HCl (Ktjofroh-Rft-2 0.1mg/24hr) 1 patch TD CQWK [facility] Stop: 09/05/18 00:00 Last Admin: 08/06/18 00:32 Dose: 1 patch Hydralazine HCl (Hydralazine Hcl) 10 mg IV NOW STA Stop: 08/05/18 23:35 Last Admin: 08/06/18 00:04 Dose: 10 mg Lorazepam (Ativan) 1 mg in 2 mls @ 2 mls/min IV NOW STA Stop: 08/05/18 16:34 Last Admin: 08/05/18 16:47 Dose: 2 mls/min Levetiracetam 1,000 mg/ (Dextrose) 110 mls @ 440 mls/hr IV NOW STA Stop: 08/05/18 17:17 Last Infusion: 08/05/18 17:46 Dose: 0 mls/hr Admin: 08/05/18 17:27 Dose: 440 mls/hr Dextrose/Sodium Chloride (D5w And 1/2nss) 1,000 mls @ 80 mls/hr IV .[id number] ROGER Stop: 09/04/18 20:29 Last Admin: 08/06/18 10:12 Dose: Not Given Infusion: 08/06/18 10:02 Dose: 0 mls/hr Admin: 08/05/18 21:12 Dose: 80 mls/hr Potassium Chloride (K Daniel / Wtr) 10 meq in 100 mls @ 100 mls/hr IV Q1H STA Stop: 08/05/18 20:23 Last Infusion: 08/05/18 21:31 Dose: 0 mls/hr Admin: 08/05/18 20:07 Dose: 100 mls/hr Infusion: 08/05/18 20:07 Dose: 100 mls/hr Admin: 08/05/18 20:02 Dose: 100 mls/hr Nicardipine HCl 25 mg/ Sodium (Chloride) 250 mls @ 75 mls/hr IV .Q3H20M ROGER; Protocol Stop: 09/05/18 01:44 Last Titration: 08/06/18 05:24 Dose: 0 mg/hr, 0 mls/hr Titration: 08/06/18 02:49 Dose: 7.5 mg/hr, 75 mls/hr Admin: 08/06/18 02:14 Dose: 5 mg/hr, 50 mls/hr Labetalol HCl (Normodyne) 10 mg IV Q6H PRN PRN Reason: blood pressure above 180/120 Stop: 09/04/18 18:26 Last Admin: 08/05/18 21:13 Dose: 10 mg Labetalol HCl (Normodyne) Confirm Administered Dose 5 mg IV .STK-MED ONE Stop: 08/05/18 18:42 Last Admin: 08/05/18 19:04 Dose: 10 mg Lorazepam (Ativan) Confirm Administered Dose 2 mg .ROUTE .STK-MED ONE Stop: 08/05/18 16:33 Last Admin: 08/05/18 16:47 Dose: Not Given Miscellaneous Information (Patient's Allergy Info Needs Entered) 1 ea N/A Q30M ROGER Stop: 09/04/18 20:14 Last Admin: 08/05/18 21:42 Dose: 1 ea Admin: 08/05/18 21:04 Dose: 1 ea Description This is a 21 electrode EEG with a single channel dedicated to limited EKG. The electrodes were placed in accordance with the International 10-20 system. The study is done at the bedside in the ICU with simultaneous videao recording of patient movements and behavior photic stimulation is perfomred Overall the study shows a low voltage posterior head region maximal background rhythm in the upper theta range at 6 hz, a fronto central symmetrical and at times rhythmic theta delta pattern of moderate to moderately high voltage and no clear cut beta activity due to competing bifrontal muscle artefact There is an F 7 electrode artefact appearing intermittently and very frequent movement related artefacts but these do not interfere with interpretation. Photic stimulation provokes a minimal driving response NO clear cut potentially epileptogenic patterns are seen. The study appears to be done during a stuporous state and as the recording porceeds there are a few epochs during shich the background rhythm nears the alpha range and the higher amplitude fronto central theta delta activity is less prominent and shifts to a higher frequency and loser amplitude Interpretation moderately diffusely abnormal eeg with no lateralizing features and without accompanying potentially epileptogenic discharges Clinical Correlation Study show a moderate to moderately severe nonspecific generalized encephalopathy without lateralizing features and without evidence for potentially epileptogenic pattens this could easily represent a post ictal state but is otherwise nonspecific for causation Guilherme Reed MD
[2018-08-06] MEDS: HEPARIN SOD 5,000 UNIT/0.5 ML VIAL SQ SCH ×2 (12:15→17:44)
[2018-08-06] MEDS: ATORVASTATIN 40 MG TAB PO SCH (12:26)
--- NOTE | 2018-08-06 12:29 | Neurology Consultation ---
Date of Consultation August 06, 2018 Assessment & Plan (1) Seizure: 1. seizure- would continue Keppra 500 mg BID for now- EEG with no seizure activity generalized slowing 2. MRI - acute infarct left thalamus and deep white matter just superior to the left lateral ventricle - Should be repeated do to poor imaging once patient is stable, possible related to PRES. ASA, no plavix at present due to decreased platelet count. Labs including esr, ezra to eval for vasculitis, ryan for hypercoag state. MRA head when more cooperative, repeat MRI in several weeks to look for resolution supportive of dx PRES 3. CTA head and neck - evaluation of vessels which are in question on MRA- unable to tolerate due to renal function 4. TTE- to evaluated cardiac function if not already done 5. aspirin 81 mg - 6. blood pressure 160-180 at this point but would then try to optimize. Discussed with LIYA Castillo Treat headache symptomatically,no triptans should be used. no ultram. 8. PT/OT for discharge needs 9. optimize HTN, HLD, DM LDL <70 10. would check thiamine level and add thiamine 11. health care social worker for intervention due to homeless and insurance issues Pt seen and examined., Neck supple, PERRL. unable to visualize optic nerves. Pt mildly sleepy. Following commands. Imp sz, possibly related to PRES. Continue Keppra, hypercoag labs and vasculitis. Primary care team to eval for secondary causes of hypertension. Tx hypertension See above, JAMIE Live MD Supervising Physician Co-Signing Physician Notes I have seen and discussed above patient with Dr Sapphire Live, neurology History of Present Illness Requesting Physician: Ranjith Pulido MD Attending Physician: Ranjith Pulido MD History of Present Illness Preet is a 48 year old male who was at the [facility] in [place] when he had a seizure. He states he is homeless but does live with someone in the winter. He has had a headache for the past week. he had a witnessed seizure prior to the arrival of EMS and recovered from his seizure and then had another seizure in the ambulance. There is not a good description of the seizure event but EMS states all his extremities were moving. He was hypertensive and he was not drinking today. He was on blood pressure medication previously but has not seen a doctor in years. He is very restless due to the headache which he states is 8/ 10. He has had headaches in the past but "nothing like this" He states he has never had a seizure in the past and does not remember anything about the event. He does remember being in the ED. He is a 1/2 ppd smoker, occasional EtOH use, no other drugs. denies CP, SOB, abdominal pain, one sided weakness, numbness tingling, N, V. Allergies Allergy/AdvReac Type Severity Reaction Status Date / Time No Known Allergies Allergy Unverified 08/05/18 21:03 Home Medications Home Medications Medication Instructions Recorded Confirmed Type Unobtainable 08/05/18 08/05/18 History Patient History Family History Other Family history non-contributory Social History Current Living Situation: Homeless and Other Current Living Situation Comment: lives with friend Saima García Feels Safe at Home: Yes Smoking Status: Heavy tobacco smoker Hx Alcohol Use: No Hx Substance Use: No Beliefs That Will Affect Care: None Communication Ability: Effective Physical Exam 2 Vital Signs (Past 24 Hours): Last Vital Signs Temp 36.7 C 08/06/18 03:45 Pulse 89 08/06/18 05:45 Resp 18 08/06/18 05:45 BP 161/89 H 08/06/18 05:45 Pulse Ox 98 08/06/18 05:45 Physical Exam: Constitutional: appearance nourished Ears, Nose, Mouth and Throat: mucous membranes moist, no injection and skin normal, eyes normal Cardiovascular: normal S-1 and S-2 and regular rate and rhythm Respiratory: course breath sounds Musculoskeletal: no peripheral edema and good distal pulses Skin: no stigmata of neurocutaneous disease noted and normal and intact Eyes: extraocular muscles intact (EOMI) and pupils equal, round and reactive to light (PERRL) NEUROLOGIC EXAMINATION: Mental status: Alert and interactive Oriented to full date and location Oriented to person Speech fluent with no evidence of aphasia Cranial Nerves smile eye brow raise symmetric Reflexes: Deep tendon reflexes were symmetrical and graded 2/5. Plantar responses were flexor. Sensory: intact to cool and light touch Coordination: finger to nose slight bi pass but corrects Gait/Stance: Posture lying in bed. Motor: Negative for pronator drift of out stretched arms with eyes closed. Strength: biceps triceps hand skirt trimmer deltoids 5/5, hip flex patellar/plantar flex ext 5/5 Results & Data Laboratory Results Abnormal lab results 08/05/18 08/05/18 08/05/18 Range/Units 16:53 16:53 18:45 WBC 22.70 H (4.8-10.8) K/uL RBC 4.42 L (4.7-6.1) M/uL Hgb 13.7 L (14.0-18.0) g/dL Hct 40.0 L (42-52) % Plt Count 114 L (130-400) K/uL MPV 11.5 H (7.4-10.4) fL Immature Gran # (Auto) 0.22 H (0.00-0.02) K/uL Neut # (Auto) 19.58 H (1.4-6.5) K/uL [place] # (Auto) 0.94 H (0.11-0.59) K/uL Sodium 134 L (136-145) mmol/L Potassium 3.1 L (3.5-5.1) mmol/L Carbon Dioxide 18 L (21-32) mmol/L Anion Gap 18.0 H (3-11) BUN 24 H (7-18) mg/dl Creatinine 3.14 H (0.6-1.4) mg/dl BUN/Creatinine Ratio 7.5 L (10-20) Glucose 187 H (70-99) mg/dl POC Glucose (70-99) Lactate 2.5 H* (0.4-2.0) mmol/L Magnesium (1.8-2.4) mg/dl Total Bilirubin 1.2 H (0.2-1) mg/dl AST (15-37) U/L Total Creatine Kinase (39-308) U/L Troponin I (0-0.045) ng/ml Triglycerides (0-150) mg/dl Cholesterol (0-200) mg/dl Urine Protein (Negative) Urine Glucose (UA) (Negative) Urine Blood (Negative) U Epithel Cells (Auto) (0-5) /lpf Granular Casts (0) /lpf U Benzodiazepines Scrn (Neg) 08/05/18 08/06/18 08/06/18 Range/Units 22:59 04:30 04:30 WBC 18.23 H (4.8-10.8) K/uL RBC 4.14 L (4.7-6.1) M/uL Hgb 12.9 L (14.0-18.0) g/dL Hct 36.8 L (42-52) % Plt Count 87 L (130-400) K/uL MPV 12.2 H (7.4-10.4) fL Immature Gran # (Auto) 0.06 H (0.00-0.02) K/uL Neut # (Auto) 15.21 H (1.4-6.5) K/uL [place] # (Auto) 1.13 H (0.11-0.59) K/uL Sodium (136-145) mmol/L Potassium 3.2 L 2.9 L (3.5-5.1) mmol/L Carbon Dioxide (21-32) mmol/L Anion Gap (3-11) BUN 25 H 25 H (7-18) mg/dl Creatinine 2.69 H D 2.67 H (0.6-1.4) mg/dl BUN/Creatinine Ratio 9.4 L 9.5 L (10-20) Glucose 109 H 141 H (70-99) mg/dl POC Glucose (70-99) Lactate (0.4-2.0) mmol/L Magnesium 2.6 H (1.8-2.4) mg/dl Total Bilirubin 1.1 H (0.2-1) mg/dl AST 38 H (15-37) U/L Total Creatine Kinase 622 H (39-308) U/L Troponin I 0.265 H* 0.198 H* (0-0.045) ng/ml Triglycerides 172 H (0-150) mg/dl Cholesterol 234 H (0-200) mg/dl Urine Protein (Negative) Urine Glucose (UA) (Negative) Urine Blood (Negative) U Epithel Cells (Auto) (0-5) /lpf Granular Casts (0) /lpf U Benzodiazepines Scrn (Neg) 08/06/18 08/06/18 08/06/18 Range/Units 06:00 06:00 10:19 WBC (4.8-10.8) K/uL RBC (4.7-6.1) M/uL Hgb (14.0-18.0) g/dL Hct (42-52) % Plt Count (130-400) K/uL MPV (7.4-10.4) fL Immature Gran # (Auto) (0.00-0.02) K/uL Neut # (Auto) (1.4-6.5) K/uL [place] # (Auto) (0.11-0.59) K/uL Sodium (136-145) mmol/L Potassium (3.5-5.1) mmol/L Carbon Dioxide (21-32) mmol/L Anion Gap (3-11) BUN (7-18) mg/dl Creatinine (0.6-1.4) mg/dl BUN/Creatinine Ratio (10-20) Glucose (70-99) mg/dl POC Glucose 145 H (70-99) Lactate (0.4-2.0) mmol/L Magnesium (1.8-2.4) mg/dl Total Bilirubin (0.2-1) mg/dl AST (15-37) U/L Total Creatine Kinase (39-308) U/L Troponin I (0-0.045) ng/ml Triglycerides (0-150) mg/dl Cholesterol (0-200) mg/dl Urine Protein 3+ H (Negative) Urine Glucose (UA) Trace H (Negative) Urine Blood 2+ H (Negative) U Epithel Cells (Auto) >30 H (0-5) /lpf Granular Casts 5-10 H (0) /lpf U Benzodiazepines Scrn Pos H (Neg) Diagnostic Findings MRI brain - Significantly compromised study secondary to motion artifact Acute/ subacute infarcts involving the left thalamus and deep white matter just superior to the left lateral ventricle Signal abnormalities within both occipital lobes left greater than right with equivocal restricted water diffusion. The findings could represent additional acute/subacute infarcts or PRESS. Frontal scalp lipoma A follow-up MRI is recommended given the abnormalities described above and the technical limitations of the current study. MRA brain-Near nondiagnostic study due to considerable patient motion. Grossly unremarkable vertebral basilar system. Probable multifocal narrowing of the middle cerebral arterial vasculature. Nondiagnostic evaluation of the anterior cerebral vasculature. carotid doppler- Near nondiagnostic study due to considerable patient motion. Grossly unremarkable vertebral basilar system. Probable multifocal narrowing of the middle cerebral arterial vasculature. Nondiagnostic evaluation of the anterior cerebral vasculature. EEG-moderately diffusely abnormal eeg with no lateralizing features and without accompanying potentially epileptogenic discharges
[2018-08-06] MEDS: ACETAMINOPHEN 500 MG TAB PO PRN (14:02)
--- NOTE | 2018-08-06 18:17 | Hospitalist Progress Note ---
Date of Service August 06, 2018 Assessment & Plan (1) Seizure: Seizure and Hypertensive Emergency as per history there was been seizure x 2 was loaded with Keppra 1000 mg in the ED on 08/07/18 hypertension may be from seizures initially 235/116 in ED, when seen by hospitalist blood pressure 209/132 on 08/06; because blood pressure remain very elevated while on telemetry duarte, patient was transferred to ICU for closer monitoring and blood pressure control while in the ICU patient has been on nicardipine drip and clonidine patch hospitalist will start carvedilol 3.125 mg BID and amlodipine 5 mg starting on the night of 08/06/18 to try to bridge blood pressure towards just oral medication as per neurology service: continue Keppra EEG 08/06/18; moderately diffusely abnormal EEG with no lateralizing features and without accompanying potentially epileptogenic discharges In regards to admission head CT (1. No acute intracranial hemorrhage or mass effect. 2. 1.2 cm hypodensity within the left thalamus. Although indeterminate, this favors a subacute to chronic infarct. 3. 1.7 cm hypodensity within the posterior limb of the left internal capsule favors an old lacunar infarct or prominent perivascular space. 4. 2.1 x 0.7 cm CSF attenuation focus overlying the posterior left frontal lobe which favors an arachnoid cyst.) neurology ordered Brain MRI/Head MRA and commented that findings of "acute infarct left thalamus and deep white matter just superior to the left lateral ventricle" should be repeated do to poor imaging once patient is stable, patient has been started on aspirin but no plavix due to decreased platelet count Labs including esr, ezra to eval for vasculitis, workup up for hypercoagulable state Leukocytosis and elevated creatinine kinase likely from seizure continuing on IV fluids and trend Elevated Troponins likely from seizures, no chest pain echocardiogram EF 60 to 65 %, no wall motion abnormality, but cardiology commented of questionable pattern of Left ventricle of possible infiltrative disease such as amyloidosis troponins downtrending (2) Renal failure: HANS (acute kidney injury): -as per nephrology Patient with acute kidney injury likely due to ischemic ATN in setting of NSAIDs. Urine sediment showed a few muddy brown casts consistent with ATN. He may have had periods of reduced renal perfusion during the seizures. We do not have clear baseline. Creatinine slightly better today at 2.6. He has no hydronephrosis based on the renal duplex. Monitor daily BMP, avoid nephrotoxins. avoid NSAIDs completely going forward. -on IV fluids Hypokalemia: potassium supplements given trend potassium levels DVT PROPHYLAXIS - SCDs PT/OT Full Code as per my discussion with patient Social Issues homeless patient reports he lives in [place] with female friend Susana Mack in winter time patient reports his mother lives in [place] Case management Subjective Patient seen and examined earlier today Has been able to follow questions and be verbal. denied acute pain or shortness of breath. continues to be in the Intensive Care unit for blood pressure control and close monitoring Currently sleeping Physical Exam 2 Vital Signs (Past 24 Hours): Last Vital Signs Temp 36.6 C 08/06/18 12:30 Pulse 81 08/06/18 14:00 Resp 20 08/06/18 14:00 BP 174/93 H 08/06/18 14:00 Pulse Ox 98 08/06/18 14:00 Constitutional: currently sleeping, exam findings from earlier today Eyes: PERRL, conjunctivae normal, anicteric sclerae normal visual tabares by confrontation and EOM intact bilaterally ENMT: external ear and nose normal, oropharynx normal Neck: normal visual inspection and trachea midline Respiratory: normal respiratory effort, lungs clear to auscultation Cardiovascular: RRR, no murmur, no edema Gastrointestinal (Abdomen): normal bowel sounds, soft, nontender, no hepatosplenomegaly Musculoskeletal: Head/Neck/Chest: normocephalic and head atraumatic Neurologic: PERRL, EOMI, accommodation nl, no face palsy, no dysarthria Psychiatric: Orientation: alert and oriented to person _ (1) Renal failure Acute renal failure type: Chronic kidney disease stage: Renal failure chronicity: unspecified chronicity Qualified Code(s): N19 - Unspecified kidney failure
[2018-08-06] MEDS: AMLODIPINE BESYLATE 5 MG TAB PO SCH (19:13)
[2018-08-06 19:16] LABS: BUN Creatinine Ratio 8.8 (10-20); Calcium 8.4 mg/dl (8.5-10.1); Creatinine Clr Calc Pharmacy 43.1 ml/min; Est GFR (African American) 39.9; Est GFR (Non-African American) 34.5; Potassium 3.2 mmol/L (3.5-5.1)
[2018-08-06] MEDS ORDERED: CARVEDILOL 3.125 MG TAB PO SCH (21:00)
[2018-08-07] MEDS: POTASSIUM CHLORIDE / WTR 10 MEQ/100 ML PLCT IV SCH ×3 (00:37→02:39)
[2018-08-07] MEDS: HEPARIN SOD 5,000 UNIT/0.5 ML VIAL SQ SCH ×3 (02:39→17:27)
[2018-08-07 04:37] LABS: Hematocrit (blood only) 35.8 % (42-52); Hemoglobin 12.1 g/dL (14.0-18.0); Mean Corpuscular Hgb Conc 33.8 g/dL (32-36); Mean Corpuscular Volume 90.6 fL (80-100); RDW Coefficient of Variation 12.9 % (11.5-14.5); RDW Standard Deviation 42.9 fL (36.4-46.3); Red Blood Count 3.95 M/uL (4.7-6.1)
[2018-08-07 04:41] LABS: Mean Platelet Volume 11.2 fL (7.4-10.4); Platelet Count 88 K/uL (130-400)
[2018-08-07 04:56] LABS: Albumin Level 3.7 gm/dl (3.4-5.0); BUN Creatinine Ratio 6.9 (10-20); Calcium 8.1 mg/dl (8.5-10.1); Creatinine Clr Calc Pharmacy 43.1 ml/min; Est GFR (African American) 39.9; Est GFR (Non-African American) 34.5; Magnesium 2.5 mg/dl (1.8-2.4); Potassium 3.5 mmol/L (3.5-5.1)
[2018-08-07 04:58] LABS: Albumin Globulin Ratio 1.1 (0.9-2); Bilirubin,Total 0.9 mg/dl (0.2-1); Globulin 3.3 gm/dl (2.5-4.0)
[2018-08-07 05:07] LABS: Basophils # (auto) 0.05 K/uL (0-0.2); Basophils % (auto) 0.4 %; Eosinophils # (auto) 0.18 K/uL (0-0.5); Eosinophils % (auto) 1.6 %; Immature Granulocytes # (auto) 0.03 K/uL (0.00-0.02); Immature Granulocytes % (auto) 0.3 %; Lymphocytes # (auto) 2.49 K/uL (1.2-3.4); Lymphocytes % (auto) 21.8 %; Monocytes # (auto) 0.85 K/uL (0.11-0.59); Monocytes % (auto) 7.5 %; Neutrophils % (auto) 68.4 %
[2018-08-07] MEDS: NORMOSOL-R 1,000 ML IV SCH (06:24)
[2018-08-07] MEDS: ASPIRIN 81 MG ECTAB PO SCH (08:07)
[2018-08-07] MEDS: AMLODIPINE BESYLATE 5 MG TAB PO SCH (08:07)
[2018-08-07] MEDS: ATORVASTATIN 40 MG TAB PO SCH ×2 (08:07→08:57)
[2018-08-07] MEDS: levETIRAcetam 500 MG TAB PO SCH ×2 (08:56→20:03)
[2018-08-07] MEDS: MULTIVITAMIN TAB PO SCH (08:57)
[2018-08-07] MEDS: CARVEDILOL 3.125 MG TAB PO SCH ×2 (08:57→20:03)
[2018-08-07] MEDS ORDERED: POTASSIUM CHLORIDE 20 MEQ TABCR PO ONE (09:00)
--- NOTE | 2018-08-07 09:34 | Critical Care Progress Note ---
Date of Service August 07, 2018 Assessment & Plan (1) Admitted to intensive care unit: Reason Critically Ill: 48-year-old male presenting with seizures x2 with hypertensive urgency and refractory hypertension. NEURO - * CAM ICU: NEGATIVE * Seizures: * 2 separate episodes with postictal status appreciated. * Carotid doppler negative for narrowing * TSH elevated, started on ASA and lipitor * Continue Keppra 500 mg BID and prn ativan * CT of the head in the emergency department suggestive of possible subacute infarct. * MRI/MRA non-diagnostic d/t pt motion but suggestive of MCA vascular narrowing. * Appreciate neurology consult. - thiamine started, f/u thiamine level * Monitor closely through breakthrough seizure-like activity. * Will allow for permissive hypertension with pressures in the 160s-170s given presentation and concern for possible underlying CVA. * f/u TTE * PT/OT ordered, f/u eval CARDIAC/VASCULAR - * Hypertensive emergency: * Nicardipine off * Increased amlodipine to 10mg, continue coreg. * Will allow for permissive hypertension * Monitor on telemetry. RESPIRATORY - * No history of pulmonary disease. No distress. * Will monitor for any changes. GI/NUTRITION - * Progress diet as tolerated. RENAL/LYTES - * Hypokalemia: - aggressive repletion and monitoring with BMPs * HANS: * Nephrology consulted, appreciate recs * No previous studies for baseline but Cr/ BUN stable * Renal doppler study suggests renal insufficiency * Continue to monitor BMP - * Strict I&O's. ENDO - * No history of diabetes or thyroid disease. TSH normal. * BSGs per unit protocol. ISS --> gtt per unit policy. HEME - * Stable H&H. * Leukopenia likely stress reaction. Normalizing. Will continue to trend. ID - * No concerns for infectious ideologies at this point. LINES/IV ACCESS - * PIVs x2 DVT PROPHYLAXIS - * SCDs, SQ heparin Thank you for allowing us to participate in the care of this patient. Please refer to my attending physician's documentation for any further recommendations. (2) Hypertensive urgency: (3) Seizure: (4) Renal failure: (5) Encephalopathy acute: Supervising Physician Co-Signing Physician Notes I have personally evaluated and examined this patient. I agree with assessment and plan of Taiwo DAWSON. Neurologically patient has improved, findings most consistent with CVA, after discussion with radiology no convincing evidence of press at this time however repeat imaging would be appropriate. I discussed the case with Dr. Hsu of cardiology cannot exclude amyloidosis versus chronic hypertensive heart disease would benefit from fat pad biopsy by pathology. Continuing to normalize blood pressure goal range 140-160 today adding Coreg hope to discontinue Nicardipine, increasing amlodipine I have personally spent 35 minutes of critical care time in the direct management of this patient. This is a life/limb threatening event. This includes time spent evaluating patient, direct bedside care, chart review, placing orders, interpretation of diagnostic studies, discussion with consultants, patient, and/or family members regarding treatment decisions, as well as other required patient management activities. This time is exclusive of all separately billable procedures, and teaching time and separate from and in addition to any other critical care service time. Subjective Constitutional: + body aches and + fatigue; no chills, no sweats, no weight loss and no weight gain Eyes: no loss of peripheral vision Ear, Nose, Mouth, Throat: no hearing loss and no nasal discharge Respiratory: no cough, no dyspnea, no hemoptysis and no wheezing Cardiovascular: no chest pain, no dyspnea on exertion, no palpitations and no edema Gastrointestinal: no nausea, no vomiting and no constipation Genitourinary (Male): no dysuria and no hematuria Neurologic: no falls, no localized weakness, no paralysis, no numbness, no headache(s), no confusion and no problem reported Physical Exam 2 Vital Signs (Past 24 Hours): Last Vital Signs Temp 36.5 C 08/07/18 07:51 Pulse 101 H 08/07/18 09:00 Resp 24 08/07/18 09:00 BP 168/90 H 08/07/18 09:00 Pulse Ox 97 08/07/18 09:00 Constitutional: cooperative and comfortable; no acute distress and no altered mental status Eyes: PERRL, conjunctivae normal, anicteric sclerae Neck: trachea midline, no thyromegaly Respiratory: normal respiratory effort, lungs clear to auscultation normal respiratory effort, able to speak in complete sentences and symmetric chest movement Auscultation: lungs clear to auscultation bilaterally and + bronchial breath sounds Cardiovascular: RRR, no murmur, no edema Rate/Rhythm: regular rate and regular rhythm Heart Sounds: normal S1 and normal S2 Palpation: no thrill and no heave Vessels: normal peripheral pulses Extremities: normal capillary refill; no edema Gastrointestinal (Abdomen): normal bowel sounds, soft, nontender, no hepatosplenomegaly Musculoskeletal: no cyanosis or clubbing, extremities motor strength 5/5 Head/Neck/Chest: normocephalic Skin: no rashes, warm and dry Neurologic: PERRL, EOMI, accommodation nl, no face palsy, no dysarthria Cranial Nerves: PERRL and EOM intact bilaterally Psychiatric: A+Ox3, euthymic affect Genitourinary: no testicular masses, no penis abnormality Lymphatic: no cervical or axillary lymphadenopathy Results & Data Laboratory Results Abnormal lab results 08/06/18 08/07/18 08/07/18 Range/Units 18:45 04:15 04:15 WBC 11.40 H (4.8-10.8) K/uL RBC 3.95 L (4.7-6.1) M/uL Hgb 12.1 L (14.0-18.0) g/dL Hct 35.8 L (42-52) % Plt Count 88 L (130-400) K/uL MPV 11.2 H (7.4-10.4) fL Immature Gran # (Auto) 0.03 H (0.00-0.02) K/uL Neut # (Auto) 7.80 H (1.4-6.5) K/uL [place] # (Auto) 0.85 H (0.11-0.59) K/uL Potassium 3.2 L (3.5-5.1) mmol/L Chloride 109 H (98-107) mmol/L BUN 20 H (7-18) mg/dl Creatinine 2.21 H D 2.21 H (0.6-1.4) mg/dl BUN/Creatinine Ratio 8.8 L 6.9 L (10-20) Glucose 110 H (70-99) mg/dl POC Glucose (70-99) Calcium 8.4 L 8.1 L (8.5-10.1) mg/dl Magnesium 2.5 H (1.8-2.4) mg/dl Total Creatine Kinase 602 H 675 H (39-308) U/L 08/07/18 Range/Units 07:56 WBC (4.8-10.8) K/uL RBC (4.7-6.1) M/uL Hgb (14.0-18.0) g/dL Hct (42-52) % Plt Count (130-400) K/uL MPV (7.4-10.4) fL Immature Gran # (Auto) (0.00-0.02) K/uL Neut # (Auto) (1.4-6.5) K/uL [place] # (Auto) (0.11-0.59) K/uL Potassium (3.5-5.1) mmol/L Ch[place]ide (98-107) mmol/L BUN (7-18) mg/dl Creatinine (0.6-1.4) mg/dl BUN/Creatinine Ratio (10-20) Glucose (70-99) mg/dl POC Glucose 167 H (70-99) Calcium (8.5-10.1) mg/dl Magnesium (1.8-2.4) mg/dl Total Creatine Kinase (39-308) U/L Medications Administered Home Medications Unobtainable 08/05/18 [History Confirmed 08/05/18] Active Medications Acetaminophen (Tylenol) 1,000 mg PO Q8H PRN PRN Reason: Pain Stop: 09/05/18 13:14 Last Admin: 08/06/18 14:02 Dose: 1,000 mg Amlodipine Besylate (Norvasc) 10 mg PO QAM [facility] Stop: 09/07/18 08:59 Aspirin (Ecotrin Ectab) 81 mg PO QAM [facility] Stop: 09/05/18 10:29 Last Admin: 08/07/18 08:07 Dose: 81 mg Atorvastatin Calcium (Lipitor) 80 mg PO QAM [facility] Stop: 09/06/18 08:59 Last Admin: 08/07/18 08:57 Dose: 80 mg Carvedilol (Coreg) 3.125 mg PO BID [facility] Stop: 09/06/18 08:59 Last Admin: 08/07/18 08:57 Dose: 3.125 mg Heparin Sodium (Porcine) (Heparin Sodium (Porcine)) 5,000 units SQ Q8H [facility] Stop: 09/05/18 09:59 Last Admin: 08/07/18 08:58 Dose: 5,000 units Lorazepam (Ativan) 2 mg in 4 mls @ 4 mls/min IV Q2H PRN PRN Reason: Breakthrough Seizures Stop: 09/04/18 20:41 Nicardipine HCl 25 mg/ Sodium (Chloride) 250 mls @ 50 mls/hr IV .Q5H [facility]; Protocol Stop: 09/05/18 04:32 Last Admin: 08/07/18 11:32 Dose: 5 mg/hr, 50 mls/hr Levetiracetam (Keppra) 500 mg PO BID [facility] Stop: 09/06/18 08:59 Last Admin: 08/07/18 08:56 Dose: 500 mg Miscellaneous (Icu Protocol For Hyperglycemia) 1 ea N/A PRN PRN; Protocol PRN Reason: Hyperglycemia Protocol Stop: 08/08/18 04:44 Multivitamins (Multivitamin Tab) 1 tab PO QAM [facility] Stop: 09/06/18 08:59 Last Admin: 08/07/18 08:57 Dose: 1 tab Ondansetron HCl (Zofran) 4 mg IV Q6H PRN PRN Reason: Nausea Stop: 09/04/18 20:41 _ (1) Renal failure Acute renal failure type: Chronic kidney disease stage: Renal failure chronicity: unspecified chronicity Qualified Code(s): N19 - Unspecified kidney failure
[2018-08-07] MEDS ORDERED: AMLODIPINE BESYLATE 5 MG TAB PO ONE (10:00)
--- NOTE | 2018-08-07 11:38 | Nephrology Progress Note ---
Date of Service August 07, 2018 Assessment & Plan (1) HANS (acute kidney injury): Patient with acute kidney injury likely due to ischemic ATN in setting of NSAIDs. Urine sediment showed a few muddy brown casts consistent with ATN. He may have had periods of reduced renal perfusion during the seizures. We do not have clear baseline. Creatinine slightly better today at 2.2 today from 2.6 yesterday. He has no hydronephrosis based on the renal duplex. Monitor daily BMP, avoid nephrotoxins. We discussed need to avoid NSAIDs completely going forward. (2) Hypertensive urgency: Patient with hypertensive urgency in setting of not taking medications. He has hypokalemia, renin aldosterone ratio pending. Blood pressure is controlled on nicardipine drip. Transitioning to p.o. meds with the amlodipine and Coreg. Blood pressure is now controlled. (3) Hypokalemia: Unclear etiology. Recommend potassium chloride 20 mEq p.o. today. (4) Seizure: Controlled on Keppra. Patient has some evidence of subacute infarcts on brain CT. Subjective Patient seen in follow-up for acute kidney injury and hypertension. He feels better this morning denies any shortness of breath or pain. Creatinine is downtrending to 2.2 today. His blood pressure is improving. He continues on the nicardipine drip. Review of Systems All systems reviewed & are unremarkable except as noted in HPI & below Physical Exam 2 Vital Signs (Past 24 Hours): Last Vital Signs Temp 36.5 C 08/07/18 07:51 Pulse 73 08/07/18 11:00 Resp 19 08/07/18 11:00 BP 130/65 08/07/18 11:00 Pulse Ox 100 08/07/18 11:00 Physical Exam: General exam: Appears comfortable, no acute distress HEENT: Pupils are equal and reactive to light Neck: No JVD, neck is supple trachea is midline Respiratory system: Clear breath sounds bilaterally. Gastrointestinal: Abdomen is soft, non distended, non tender, bowel sounds are present CVS: Regular rate and rhythm. No murmurs, rubs or gallops Musculoskeletal: No joint or muscle tenderness Extremities: Non tender, no edema, peripheral pulses are present Neuro: Oriented, no tremors, no focal neurological deficits Skin: No rashes Results & Data Laboratory Results Hemoglobin of 12.1, sodium 140, potassium 3.5, BUN 15, creatinine 2.2
--- NOTE | 2018-08-07 14:13 | Neurology Progress Note ---
Date of Service August 07, 2018 Assessment & Plan (1) Seizure: 1. seizure- would continue Keppra 500 mg BID for now- EEG with no seizure activity generalized slowing 2. MRI - acute infarct left thalamus and deep white matter just superior to the left lateral ventricle - Should be repeated do to poor imaging once patient is stable, possible related to PRES. ASA, no plavix at present due to decreased platelet count. Labs including esr, ezra to eval for vasculitis, ryan for hypercoag state. MRA head when more cooperative, repeat MRI in several weeks to look for resolution supportive of dx PRES 3. CTA head and neck - evaluation of vessels which are in question on MRA- unable to tolerate due to renal function 4. TTE- no ASD 5. aspirin 81 mg only at this time platlets today 88 6. blood pressure 160-180 at this point but would then try to optimize. Discussed with LIYA Castillo Treat headache symptomatically,no triptans should be used. no ultram. 8. PT/OT for discharge needs 9. optimize HTN, HLD, DM LDL <70 10. would check thiamine level and add thiamine 11. pediatric social worker for intervention due to homeless and insurance issues Pt seen and examined. ALICEA improving, no weakness, numbness. Poss FMH of early vascular disease. Pt awake, alert, no field cut, facial asymm. Symmetric strength, equal LT BL. Impr poss PRES with sz. P. tx modifiable risk factors, smoking cessation. Out pt cafeteria monitor, repeat MRI 2 weeks with MRA head and neck when able. Will follow with you. JAMIE Live MD Supervising Physician Co-Signing Physician Notes I have seen and discussed above patient with Dr Sapphire Live, neurology Subjective Preet is a 48 year old male who was at the [facility] in [place] when he had a seizure. He states he is homeless but does live with someone in the winter. He has had a headache for the past week. he had a witnessed seizure prior to the arrival of EMS and recovered from his seizure and then had another seizure in the ambulance. There is not a good description of the seizure event but EMS states all his extremities were moving. He was hypertensive and he was not drinking today. He was on blood pressure medication previously but has not seen a doctor in years. He is very restless due to the headache which he states is 8/ 10. He has had headaches in the past but "nothing like this" He states he has never had a seizure in the past and does not remember anything about the event. He does remember being in the ED. He is a 1/2 ppd smoker, occasional EtOH use, no other drugs. He states he is doing much better today. the headache is much improved. 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 denies CP, SOB, abdominal pain, one sided weakness, numbness tingling, N, V. Physical Exam 2 Vital Signs (Past 24 Hours): Last Vital Signs Temp 36.5 C 08/07/18 07:51 Pulse 73 08/07/18 11:00 Resp 19 08/07/18 11:00 BP 130/65 08/07/18 11:00 Pulse Ox 100 08/07/18 11:00 Physical Exam: Constitutional: appearance nourished, more open with questions than yesterday Ears, Nose, Mouth and Throat: mucous membranes moist, no injection and skin normal, eyes normal Cardiovascular: normal S-1 and S-2 and regular rate and rhythm Respiratory: course breath sounds Musculoskeletal: no peripheral edema and good distal pulses Skin: no stigmata of neurocutaneous disease noted and normal and intact Eyes: extraocular muscles intact (EOMI) and pupils equal, round and reactive to light (PERRL) NEUROLOGIC EXAMINATION: Mental status: Alert and interactive Oriented to person Speech fluent with no evidence of aphasia Cranial Nerves smile eye brow raise symmetric Coordination: finger to nose no bi pass Gait/Stance: Posture lying in bed moving spontaneously and with purpose Motor: Negative for pronator drift of out stretched arms with eyes closed. 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/5, hip flex 5/5 bilaterally Results & Data Laboratory Results Abnormal lab results 08/06/18 08/07/18 08/07/18 Range/Units 18:45 04:15 04:15 WBC 11.40 H (4.8-10.8) K/uL RBC 3.95 L (4.7-6.1) M/uL Hgb 12.1 L (14.0-18.0) g/dL Hct 35.8 L (42-52) % Plt Count 88 L (130-400) K/uL MPV 11.2 H (7.4-10.4) fL Immature Gran # (Auto) 0.03 H (0.00-0.02) K/uL Neut # (Auto) 7.80 H (1.4-6.5) K/uL Glenn # (Auto) 0.85 H (0.11-0.59) K/uL Potassium 3.2 L (3.5-5.1) mmol/L Chloride 109 H (98-107) mmol/L BUN 20 H (7-18) mg/dl Creatinine 2.21 H D 2.21 H (0.6-1.4) mg/dl BUN/Creatinine Ratio 8.8 L 6.9 L (10-20) Glucose 110 H (70-99) mg/dl POC Glucose (70-99) Calcium 8.4 L 8.1 L (8.5-10.1) mg/dl Magnesium 2.5 H (1.8-2.4) mg/dl Total Creatine Kinase 602 H 675 H (39-308) U/L 08/07/18 Range/Units 07:56 WBC (4.8-10.8) K/uL RBC (4.7-6.1) M/uL Hgb (14.0-18.0) g/dL Hct (42-52) % Plt Count (130-400) K/uL MPV (7.4-10.4) fL Immature Gran # (Auto) (0.00-0.02) K/uL Neut # (Auto) (1.4-6.5) K/uL Glenn # (Auto) (0.11-0.59) K/uL Potassium (3.5-5.1) mmol/L Chloride (98-107) mmol/L BUN (7-18) mg/dl Creatinine (0.6-1.4) mg/dl BUN/Creatinine Ratio (10-20) Glucose (70-99) mg/dl POC Glucose 167 H (70-99) Calcium (8.5-10.1) mg/dl Magnesium (1.8-2.4) mg/dl Total Creatine Kinase (39-308) U/L Diagnostic Findings TTE- EF 60-65% speckling pattern ?possible infiltrative disease
--- NOTE | 2018-08-07 18:07 | Hospitalist Progress Note ---
Date of Service August 07, 2018 Assessment & Plan (1) Seizure: Seizure and Hypertensive Emergency vs Posterior reversible encephalopathy syndrome as per history there was been seizure x 2 was loaded with Keppra 1000 mg in the ED on 08/07/18 hypertension may be from seizures initially 235/116 in ED, when seen by hospitalist blood pressure 209/132 on 08/06; because blood pressure remain very elevated while on telemetry duarte, patient was transferred to ICU for closer monitoring and blood pressure control while in the ICU patient has been on nicardipine drip and clonidine patch continues to be on nicardipine drip and currently on carvedilol and amlodipine as per neurology service: continue Keppra EEG 08/06/18; moderately diffusely abnormal EEG with no lateralizing features and without accompanying potentially epileptogenic discharges In regards to admission head CT (1. No acute intracranial hemorrhage or mass effect. 2. 1.2 cm hypodensity within the left thalamus. Although indeterminate, this favors a subacute to chronic infarct. 3. 1.7 cm hypodensity within the posterior limb of the left internal capsule favors an old lacunar infarct or prominent perivascular space. 4. 2.1 x 0.7 cm CSF attenuation focus overlying the posterior left frontal lobe which favors an arachnoid cyst.) neurology ordered Brain MRI/Head MRA and commented that findings of "acute infarct left thalamus and deep white matter just superior to the left lateral ventricle" should be repeated do to poor imaging once patient is stable, patient has been started on aspirin but no plavix due to decreased platelet count Labs including esr, ezra to eval for vasculitis, workup up for hypercoagulable state repeat MRI in several weeks to look for resolution supportive of Posterior reversible encephalopathy syndrome Leukocytosis and elevated creatinine kinase likely from seizure Leukocytosis downtrending Creatinine kinase continues to be above 600, continue to monitor and hydrate as needed Elevated Troponins likely from seizures, no chest pain echocardiogram EF 60 to 65 %, no wall motion abnormality, but cardiology commented of questionable pattern of Left ventricle of possible infiltrative disease such as amyloidosis ICU physician coordinating for fat pad biopsy troponins downtrending (2) Renal failure: HANS (acute kidney injury): -as per nephrology Patient with acute kidney injury likely due to ischemic ATN in setting of NSAIDs. Urine sediment showed a few muddy brown casts consistent with ATN. He may have had periods of reduced renal perfusion during the seizures He has no hydronephrosis based on the renal duplex. Monitor daily BMP, avoid nephrotoxins. avoid NSAIDs completely going forward. -Creatinine stable 2.6, perhaps patient has chronic kidney disease? Hypokalemia: improved after potassium supplements given DVT PROPHYLAXIS - SCDs PT/OT Full Code as per my discussion with patient Social Issues homeless patient reports he lives in [place] with female friend Susana Mack in winter time patient reports his mother lives in [place] Case management Subjective Patient seen and examined in ICU Has been able to follow questions and be verbal. denied acute pain or shortness of breath. continues to be in the Intensive Care unit for blood pressure control (IV nicardepine drip) and close monitoring Physical Exam 2 Vital Signs (Past 24 Hours): Last Vital Signs Temp 36.8 C 08/07/18 16:00 Pulse 84 08/07/18 16:00 Resp 16 08/07/18 16:00 BP 143/77 H 08/07/18 16:00 Pulse Ox 99 08/07/18 16:00 Eyes: PERRL, conjunctivae normal, anicteric sclerae normal visual tabares by confrontation and EOM intact bilaterally ENMT: external ear and nose normal, oropharynx normal Neck: normal visual inspection and trachea midline Respiratory: normal respiratory effort, lungs clear to auscultation Cardiovascular: RRR, no murmur, no edema Gastrointestinal (Abdomen): normal bowel sounds, soft, nontender, no hepatosplenomegaly Musculoskeletal: Head/Neck/Chest: normocephalic and head atraumatic Neurologic: PERRL, EOMI, accommodation nl, no face palsy, no dysarthria Psychiatric: Orientation: alert and oriented to person _ (1) Renal failure Acute renal failure type: Chronic kidney disease stage: Renal failure chronicity: unspecified chronicity Qualified Code(s): N19 - Unspecified kidney failure
[2018-08-08] MEDS: HEPARIN SOD 5,000 UNIT/0.5 ML VIAL SQ SCH ×3 (02:50→17:05)
[2018-08-08 04:58] LABS: Basophils # (auto) 0.06 K/uL (0-0.2); Basophils % (auto) 0.6 %; Eosinophils # (auto) 0.25 K/uL (0-0.5); Eosinophils % (auto) 2.3 %; Immature Granulocytes # (auto) 0.03 K/uL (0.00-0.02); Immature Granulocytes % (auto) 0.3 %; Lymphocytes # (auto) 2.76 K/uL (1.2-3.4); Lymphocytes % (auto) 25.4 %; Mean Corpuscular Hgb Conc 33.3 g/dL (32-36); Mean Corpuscular Volume 92.2 fL (80-100); Mean Platelet Volume 11.1 fL (7.4-10.4); Monocytes # (auto) 0.67 K/uL (0.11-0.59); Monocytes % (auto) 6.2 %; Neutrophils % (auto) 65.2 %; Platelet Count 116 K/uL (130-400); RDW Standard Deviation 43.8 fL (36.4-46.3); Red Blood Count 4.23 M/uL (4.7-6.1); White Blood Count 10.87 K/uL (4.8-10.8)
[2018-08-08 05:17] LABS: BUN Creatinine Ratio 7.8 (10-20); Calcium 8.8 mg/dl (8.5-10.1); Creatinine Clr Calc Pharmacy 42.9 ml/min; Est GFR (African American) 39.7; Est GFR (Non-African American) 34.3; Magnesium 2.3 mg/dl (1.8-2.4); Potassium 3.9 mmol/L (3.5-5.1)
[2018-08-08 05:32] LABS: Phosphorus 2.7 mg/dl (2.5-4.9)
--- NOTE | 2018-08-08 08:01 | Critical Care Progress Note ---
Date of Service August 08, 2018 Assessment & Plan (1) Admitted to intensive care unit: 48-year-old male presenting with seizures x2 with hypertensive urgency, and refractory hypertension. Patient is now alert and oriented. Blood pressure still hypertensive, successfully weaning nicardipine and adding to oral regimen. Will continue to monitor until transfer to telemetry. NEURO - * CAM ICU: NEGATIVE * Seizures: * 2 separate episodes with postictal status appreciated. * Carotid doppler negative for narrowing * TSH elevated, started on ASA and lipitor * Continue Keppra 500 mg BID and prn ativan * CT of the head in the emergency department suggestive of possible subacute infarct. * MRI/MRA non-diagnostic d/t pt motion but suggestive of MCA vascular narrowing. * Appreciate neurology consult. - thiamine started, f/u thiamine level * Monitor closely through breakthrough seizure-like activity. * Will allow for permissive hypertension with pressures in the 140s-160s given presentation and concern for possible underlying CVA. * f/u TTE with bubble study * PT/OT ordered, f/u eval CARDIAC/VASCULAR - * Hypertensive emergency: * Nicardipine off * Increased Coreg, continue amlodipine. * Will allow for permissive hypertension * Monitor on telemetry. RESPIRATORY - * No history of pulmonary disease. No distress. * Will monitor for any changes. GI/NUTRITION - * Heart healthy diet. RENAL/LYTES - * Hypokalemia: - aggressive repletion and monitoring with BMPs * HANS: * Nephrology consulted, appreciate recs * No previous studies for baseline but Cr/ BUN stable * Renal doppler study suggests renal insufficiency but nondiagnostic. Repeat study ordered we will follow-up. * Continue to monitor BMP - * Strict I&O's. ENDO - * No history of diabetes or thyroid disease. TSH normal. * BSGs per unit protocol. ISS --> gtt per unit policy. HEME - * Stable H&H. * Leukopenia resolved. ID - * No concerns for infectious ideologies at this point. LINES/IV ACCESS - * PIVs x2 DVT PROPHYLAXIS - * SCDs, SQ heparin Thank you for allowing us to participate in the care of this patient. Please refer to my attending physician's documentation for any further recommendations. (2) Hypertensive urgency: (3) Seizure: (4) Renal failure: (5) Encephalopathy acute: Supervising Physician Co-Signing Physician Notes I have personally evaluated and examined this patient. I agree with assessment and plan of Taiwo DAWSON. Patient was discussed in multidisciplinary rounds We have maximized his calcium channel katrina today, increasing his beta- katrina patient is still rather hypertensive. Will repeat the renal artery ultrasound to start PARRISH inhibitor. Patient is likely going to be on multiple antihypertensive medications. Will attempt to wean off IV antihypertensives I have personally spent 35 minutes of critical care time in the direct management of this patient. This is a life/limb threatening event. This includes time spent evaluating patient, direct bedside care, chart review, placing orders, interpretation of diagnostic studies, discussion with consultants, patient, and/or family members regarding treatment decisions, as well as other required patient management activities. This time is exclusive of all separately billable procedures, and teaching time and separate from and in addition to any other critical care service time. Study: Renal arterial Doppler HISTORY: Hypertension. Renal insufficiency. FINDINGS: Repeat study is compared to prior study 08/06/2018. Mildly improved visibility of the renal arterial vasculature. No significant increase in velocity. Waveforms appear to be generally unremarkable within limitations of the exam. IMPRESSION: 1. Study is again limited although there is improved visibility of the renal arterial vasculature compared to the prior study. 2. No gross evidence for significant renal arterial stenotic change. Electronically signed by: Scotty Meng M.D. 08/08/2018 1:20 PM Given findings will add low dose lisinopril Subjective Patient is a 48-year-old male admitted for witnessed seizure. Patient was admitted and started on Keppra. Patient seen by neurology each day since admission. EEG was completed and showed slow waveforms but no epileptiform waves. No witnessed seizures since admission. No fever. No nausea or vomiting. Patient continues with headaches. No other acute findings. Patient denies visual changes, blind spots, decreases in vision Patient denies cough, nasal discharge, sore throat, or congestion Patient denies shortness of breath, hemoptysis, productive cough, or congestion Additional Comments: Patient denies syncope, chest pain, or palpitations Patient denies abdominal pain, and reports passing of flatus and recent bowel movement with no abnormal stools Patient reports normal urinary flow without color change Patient denies confusion, changes or imbalance in gait, weakness, headache, or syncope Physical Exam 2 Vital Signs (Past 24 Hours): Last Vital Signs Temp 36.6 C 08/08/18 04:00 Pulse 75 02/13/19 05:00 Resp 15 08/08/18 05:00 BP 168/98 H 08/08/18 05:00 Pulse Ox 98 08/08/18 05:00 Eyes: Pupils are equal round reactive to light and EOMs intact ENMT: Neck is supple nontender with moist oral mucosa Respiratory: Lungs are clear to auscultation bilaterally throughout all lobes , breathing is nonlabored, with no use of accessory muscles Cardiovascular: Heart auscultated S1-S2, no murmurs, good peripheral pulses and perfusion Gastrointestinal (Abdomen): Bowel sounds positive in all 4 quadrants. Abdomen is flat, soft, and nontender. Musculoskeletal: Patient strength is symmetrical. Patient observed ambulating with physical therapy. Neurologic: Patient is alert and oriented x3. Symmetrical strength. Steady gait Psychiatric: Patient was calm and cooperative. No hallucinations, no delirium. Genitourinary: Patient is voiding without issue Lymphatic: Patient is negative for lymphedema _ (1) Renal failure Acute renal failure type: Chronic kidney disease stage: Renal failure chronicity: unspecified chronicity Qualified Code(s): N19 - Unspecified kidney failure
[2018-08-08] MEDS: AMLODIPINE BESYLATE 5 MG TAB PO SCH (08:23)
[2018-08-08] MEDS: ASPIRIN 81 MG ECTAB PO SCH (08:23)
[2018-08-08] MEDS: ATORVASTATIN 40 MG TAB PO SCH (08:23)
[2018-08-08] MEDS: MULTIVITAMIN TAB PO SCH (08:23)
[2018-08-08] MEDS: CARVEDILOL 6.25 MG TAB PO SCH ×2 (08:23→21:24)
[2018-08-08] MEDS: levETIRAcetam 500 MG TAB PO SCH ×2 (08:23→20:10)
[2018-08-08] MEDS ORDERED: POLYETHYLENE (MIRALAX) 17 GM PACK PO SCH (09:15)
[2018-08-08] MEDS: DOCUSATE SODIUM 100 MG CAP PO SCH ×2 (11:24→20:10)
--- NOTE | 2018-08-08 13:22 | Ultrasound Report ---
Study: Renal arterial Doppler HISTORY: Hypertension. Renal insufficiency. FINDINGS: Repeat study is compared to prior study 08/06/2018. Mildly improved visibility of the renal arterial vasculature. No significant increase in velocity. Wa veforms appear to be generally unremarkable within limitations of the exam. IMPRESSION: 1. Study is again limited although there is improved visibility of the renal arterial vasculature com pared to the prior study. 2. No gross evidence for significant renal arterial stenotic change. Electronically signed by: Scotty Meng M.D. 08/08/2018 1:20 PM
--- NOTE | 2018-08-08 13:28 | Neurology Progress Note ---
Date of Service August 08, 2018 Assessment & Plan (1) Seizure: 1. seizure- would continue Keppra 500 mg BID for now- EEG with no seizure activity generalized slowing 2. MRI - acute infarct left thalamus and deep white matter just superior to the left lateral ventricle - Should be repeated do to poor imaging once patient is stable, possible related to PRES. ASA, no plavix at present due to decreased platelet count. Labs including esr, ezra to eval for vasculitis, ryan for hypercoag state. MRA head when more cooperative, repeat MRI in several weeks to look for resolution supportive of dx PRES 4. TTE- no ASD repeat no ASD 5. aspirin 81 mg only at this time platlets today 118 - CK increased in past 24 hours. 6. blood pressure 160-180 at this point but would then try to optimize. Discussed with LIYA Castillo Treat headache symptomatically,no triptans should be used. no ultram. 8. PT/OT for discharge needs 9. optimize HTN, HLD, DM LDL <70 10. would check thiamine level and add thiamine -done 11. will repeat MRI brain/MRA today for resolution of PRES. follow up in neurology in 4-6 weeks after discharge Sapphire Novoa PAC schedule Pt seen and examined, no neurologic deficit. repeat MRI/mra of COW today. Supervising Physician Co-Signing Physician Notes I have seen and discussed above patient with Dr Sapphire Live, neurology Subjective Preet is a 48 year old male who was at the [facility] in [place] when he had a seizure. He states he is homeless but does live with someone in the winter. He has had a headache for the past week. he had a witnessed seizure prior to the arrival of EMS and recovered from his seizure and then had another seizure in the ambulance. There is not a good description of the seizure event but EMS states all his extremities were moving. He was hypertensive and he was not drinking today. He was on blood pressure medication previously but has not seen a doctor in years. He is very restless due to the headache which he states is 8/ 10. He has had headaches in the past but "nothing like this" He states he has never had a seizure in the past and does not remember anything about the event. He does remember being in the ED. He is a 1/2 ppd smoker, occasional EtOH use, no other drugs. He is doing good today. He is not sure what the plan is for his care. 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 denies CP, SOB, abdominal pain, one sided weakness, numbness tingling, N, V. 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, biceps triceps deltoids 5/5 bilaterally Results & Data Laboratory Results Abnormal lab results 08/08/18 08/08/18 Range/Units 04:46 04:46 WBC 10.87 H (4.8-10.8) K/uL RBC 4.23 L (4.7-6.1) M/uL Hgb 13.0 L (14.0-18.0) g/dL Hct 39.0 L (42-52) % Plt Count 116 L (130-400) K/uL MPV 11.1 H (7.4-10.4) fL Immature Gran # (Auto) 0.03 H (0.00-0.02) K/uL Neut # (Auto) 7.10 H (1.4-6.5) K/uL [place] # (Auto) 0.67 H (0.11-0.59) K/uL Chloride 109 H (98-107) mmol/L Creatinine 2.22 H (0.6-1.4) mg/dl BUN/Creatinine Ratio 7.8 L (10-20) Total Creatine Kinase 1441 H (39-308) U/L Diagnostic Findings bubble study on TTE- negative for ASD
--- NOTE | 2018-08-08 13:53 | Hospitalist Progress Note ---
Date of Service August 08, 2018 Assessment & Plan (1) Seizure: Seizure/Hypertensive Emergency. Possible PRES Acute CVA --MRI: Acute/subacute infarcts involving the left thalamus and deep white matter just superior to the left lateral ventricle. Signal abnormalities within both occipital lobes left greater than right with equivocal restricted water diffusion. The findings could represent additional acute/subacute infarcts or PRESS. Frontal scalp lipoma --Head MRA:Grossly unremarkable vertebral basilar system. Probable multifocal narrowing of the middle cerebral arterial vasculature. Nondiagnostic evaluation of the anterior cerebral vasculature. --Carotid Doppler:No hemodynamically significant stenosis seen within the carotid arteries. --EEG:moderately diffusely abnormal eeg with no lateralizing features and without accompanying potentially epileptogenic discharges --ECHO: no ASD/VSD --Renal.a Doppler: No gross evidence for significant renal arterial stenotic change. --Off Cardene ggt --Continue Coreg, Amlodipine --Also started on Fosinopril...Monitor renal function --Continue Keppra --Appreciate ICU team/ Nephrology help --Continue Aspirin, statin --No plavix secondary to thrombocytopenia --Needs repeat Brain MRI in 2 weeks as outpatient --Hypercoaguable work up pending --Work up for secondary HTN pending --Avoid Ultram/Triptans for headache Leukocytosis and elevated CK likely secondary to seizure Leukocytosis trending down Monitor CK levels Elevated Troponins likely 2/2 seizures and HTN Patient denies chest pain ECHO: no wall motion abnormality ECHO:?? specking pattern of LV myocardium--possible infiltrative disease such as amyloidosis May need fat pad biopsy (2) Renal failure: HANS (acute kidney injury): Likely due to Ishemic ATN in setting of NSAIDs. Cr:3.14>>>2.22 Avoid nephrotoxins as able Appreciate Nephrology Input Hypokalemia: Replace electrolytes as needed DVT Px: Heparin SQ Code Status Full Code Disposition: homeless patient reports he lives in [place] with female friend Susana Mack in winter time patient reports his mother lives in [place] Case management consulted Subjective Patient is seen and examined at bedside Doing better today Denies any headache, chest pain, dyspnea, dizziness, abd pain, focal weakness Off Cardene ggt Physical Exam 2 Vital Signs (Past 24 Hours): Last Vital Signs Temp 36.7 C 08/08/18 11:01 Pulse 72 08/08/18 11:01 Resp 13 08/08/18 11:01 BP 137/77 08/08/18 11:01 Pulse Ox 97 08/08/18 11:01 Physical Exam: Physical Exam: Vitals signs as noted above General Appearance:Moderately built and nourished, no apparent distress Head: normocephalic, Atraumatic Eyes: normal inspection, EOMI Neck: supple, Trachea midline Respiratory/Chest: Decreased breath sounds, CTA Cardiovascular: S1, S2, No murmur Abdomen/GI:Soft, Non tender, Bowel sounds present Extremities/Musculoskelatal:normal inspection, no edema Neurologic/Psych:AAOX3, grossly no focal neurological deficits Skin: normal color, warm Results & Data Laboratory Results Short CBC 08/08/18 Range/Units 04:46 WBC 10.87 H (4.8-10.8) K/uL Hgb 13.0 L (14.0-18.0) g/dL Hct 39.0 L (42-52) % Plt Count 116 L (130-400) K/uL BMP 08/08/18 04:46 Sodium 140 Potassium 3.9 Chloride 109 H Carbon Dioxide 27 BUN 17 Creatinine 2.22 H Glucose 92 Calcium 8.8 Cardiac Enzymes 08/08/18 Range/Units 04:46 Total Creatine Kinase 1441 H (39-308) U/L _ (1) Renal failure Acute renal failure type: Chronic kidney disease stage: Renal failure chronicity: unspecified chronicity Qualified Code(s): N19 - Unspecified kidney failure
[2018-08-08] MEDS ORDERED: LISINOPRIL 10 MG TAB PO SCH (14:30)
[2018-08-08] MEDS: ACETAMINOPHEN 500 MG TAB PO PRN (15:17)
--- NOTE | 2018-08-08 16:14 | Nephrology Progress Note ---
Date of Service August 08, 2018 Assessment & Plan (1) HANS (acute kidney injury): Patient with acute kidney injury likely due to ischemic ATN in setting of NSAIDs. Urine sediment showed a few muddy brown casts consistent with ATN. He may have had periods of reduced renal perfusion during the seizures. We do not have clear baseline. Creatinine stable at 2.2 today. He has no hydronephrosis based on the renal duplex. Monitor daily BMP, avoid nephrotoxins. We discussed need to avoid NSAIDs completely going forward. (2) Hypertensive urgency: Patient with hypertensive urgency in setting of not taking medications. He has hypokalemia, renin aldosterone ratio pending. Blood pressure is intermittently high. He is off nicardipine drip. Continue amlodipine and Coreg. We will add Aldactone 25 mg daily if BP still not controlled (3) Hypokalemia: Potassium is better today. He might need Aldactone if hypokalemia persists. (4) Seizure: Controlled on Keppra. Patient has some evidence of subacute infarcts on brain CT. Subjective Patient seen in follow-up for acute kidney injury and hypertension. He feels better this morning denies any shortness of breath or pain. Creatinine is stable at 2.2 today. His blood pressure is improving. He is off the nicardipine drip. Review of Systems All systems reviewed & are unremarkable except as noted in HPI & below Physical Exam 2 Vital Signs (Past 24 Hours): Last Vital Signs Temp 36.7 C 08/08/18 11:01 Pulse 68 08/08/18 13:00 Resp 17 08/08/18 13:00 BP 153/84 H 08/08/18 13:00 Pulse Ox 99 08/08/18 13:00 Physical Exam: General exam: Appears comfortable, no acute distress HEENT: Pupils are equal and reactive to light Neck: No JVD, neck is supple trachea is midline Respiratory system: Clear breath sounds bilaterally. Gastrointestinal: Abdomen is soft, non distended, non tender, bowel sounds are present CVS: Regular rate and rhythm. No murmurs, rubs or gallops Musculoskeletal: No joint or muscle tenderness Extremities: Non tender, no edema, peripheral pulses are present Neuro: Oriented, no tremors, no focal neurological deficits Skin: No rashes
[2018-08-08 16:28] LABS: 7-Aminoclonaz, Confirm NEGATIVE NG/ML (CUTOFF=25); Hydro-Alp Ur, GC/MS NEGATIVE NG/ML (CUTOFF=25); Hydroxyethylflurazepam, Conf NEGATIVE NG/ML (CUTOFF=50); Hydroxytriazolam NEGATIVE NG/ML (CUTOFF=50); Lorazepam, Ur GC/MS 196 NG/ML (CUTOFF=50); Nordiazepam, Confirm NEGATIVE NG/ML (CUTOFF=50); Oxazepam Ur, GC/MS NEGATIVE NG/ML (CUTOFF=50); Temazepam, Confirm NEGATIVE NG/ML (CUTOFF=50)
[2018-08-08] MEDS ORDERED: METOPROLOL TARTRATE 1 MG/ML VIAL IV STA (17:01)
[2018-08-08] MEDS ORDERED: METOPROLOL TARTRATE 1 MG/ML VIAL IV ONE (17:02)
--- NOTE | 2018-08-08 17:44 | Magnetic Resonance Report ---
MR angio head wo con HISTORY: Mental status change multifocal stroke, poss pres, poor qual initial TECHNIQUE: 3-D [id number] MRA of the brain was performed without contrast. COMPARISON STUDY: 08/06/2017 FINDINGS: Visualized intracranial internal carotid arteries, distal vertebral arteries, and basilar a rtery are widely patent. There is no significant stenosis, occlusion, or aneurysm seen within the hay[place] ateral ACAs, MCAs, or airborne operations. Right posterior cerebral is fed via the right posterior communicator. Thi s is an anatomic variation. No evidence for significant stenotic or aneurysmal process. The vertebral basilar system is unremarka ble. IMPRESSION: No significant stenosis, occlusion, or aneurysm within the [place] of [place]. Normal study. The above report was generated using voice recognition software. It may contain grammatical, syntax or spelling errors. Electronically signed by: Scotty Meng M.D. 08/08/2018 5:43 PM
--- NOTE | 2018-08-08 18:15 | Magnetic Resonance Report ---
MR brain wo con HISTORY: Mental status change poss pres, follow up TECHNIQUE: Multiplanar multisequence MRI of the brain was performed without the use of contrast. COMPARISON STUDY: 08/06/2018 FINDINGS: Diffusion-weighted images continue to show foci of increased signal within the left thalamu s and left superior parasagittal region. This is unchanged compared to the prior study. No new foci o f acute ischemic change are present. Coronal FLAIR images demonstrate increased signal of the occipital lobes bilaterally. Several pre-exi sting foci of increased signal are identified in the periventricular deep white matter regions bilate rally. These appear generally unchanged. Ventricular system is midline. Internal auditory canals are symmetric. IMPRESSION: 1. Improved scan compared to the prior study in terms of resolution. 2. Small subacute infarcts of the left thalamus and left superior parasagittal region. This is unchan ged. 3. Increased signal of the occipital lobes bilaterally suggestive of PRESS. The above report was generated using voice recognition software. It may contain grammatical, syntax or spelling errors. Electronically signed by: Scotty Meng M.D. 08/08/2018 6:14 PM
[2018-08-08] MEDS ORDERED: HydrALAZINE HCL 20 MG/ML VIAL IV PRN (19:55)
[2018-08-08] MEDS ORDERED: HydrALAZINE HCL 20 MG/ML VIAL ONE (20:01)
[2018-08-09] MEDS: HEPARIN SOD 5,000 UNIT/0.5 ML VIAL SQ SCH ×3 (01:13→17:06)
[2018-08-09 04:27] LABS: Basophils # (auto) 0.03 K/uL (0-0.2); Basophils % (auto) 0.3 %; Eosinophils # (auto) 0.24 K/uL (0-0.5); Eosinophils % (auto) 2.3 %; Hematocrit (blood only) 37.3 % (42-52); Hemoglobin 12.6 g/dL (14.0-18.0); Immature Granulocytes # (auto) 0.03 K/uL (0.00-0.02); Immature Granulocytes % (auto) 0.3 %; Lymphocytes # (auto) 2.07 K/uL (1.2-3.4); Lymphocytes % (auto) 19.5 %; Mean Corpuscular Hgb Conc 33.8 g/dL (32-36); Mean Corpuscular Volume 91.6 fL (80-100); Mean Platelet Volume 10.8 fL (7.4-10.4); Monocytes # (auto) 0.74 K/uL (0.11-0.59); Neutrophils # (auto) 7.53 K/uL (1.4-6.5); Neutrophils % (auto) 70.6 %; Platelet Count 124 K/uL (130-400); RDW Coefficient of Variation 12.9 % (11.5-14.5); RDW Standard Deviation 43.6 fL (36.4-46.3); Red Blood Count 4.07 M/uL (4.7-6.1); White Blood Count 10.64 K/uL (4.8-10.8)
[2018-08-09 04:48] LABS: BUN Creatinine Ratio 10.6 (10-20); Calcium 8.6 mg/dl (8.5-10.1); Creatinine Clr Calc Pharmacy 39.2 ml/min; Est GFR (African American) 35.6; Est GFR (Non-African American) 30.7; Potassium 3.7 mmol/L (3.5-5.1)
--- NOTE | 2018-08-09 07:29 | Critical Care Progress Note ---
Date of Service August 09, 2018 Assessment & Plan (1) Admitted to intensive care unit: 48-year-old male presenting with seizures x2 with hypertensive urgency, and refractory hypertension. Patient is now alert and oriented. Blood pressure still hypertensive, Adjusting oral regimen For blood pressure goal. Will continue to monitor until transfer to telemetry. NEURO - * CAM ICU: NEGATIVE * Seizures: * 2 separate episodes with postictal status appreciated. * Carotid doppler negative for narrowing * TSH elevated, started on ASA and Lipitor But switched to Pravastatin Due to increase in creatinine kinase. * Continue Keppra 500 mg BID and prn ativan * CT of the head in the emergency department suggestive of possible subacute infarct. * MRI Repeat exam suggest small subacute infarcts in the left thalamus and consistent with press * MRA Repeat exam negative for vascular abnormality. * Appreciate neurology consult. - thiamine started * Monitor closely through breakthrough seizure-like activity. * Will allow for permissive hypertension with pressures in the 140s-160s given presentation and concern for CVA. * Bubble study Negative for shunt * PT/OT ordered, f/u eval CARDIAC/VASCULAR - * Hypertensive emergency: * Nicardipine off * Increased Coreg to 12.5, continue amlodipine, Started Aldactone. Holding lisinopril for HANS. * Will allow for permissive hypertension * Monitor on telemetry. RESPIRATORY - * No history of pulmonary disease. No distress. * Will monitor for any changes. GI/NUTRITION - * Heart healthy diet. RENAL/LYTES - * Hypokalemia: - aggressive repletion and monitoring with BMPs * HANS: * Nephrology consulted, appreciate recs * No previous studies for baseline Cr/ BUN * Creatinine and BUN worse today, Lisinopril DC'd * Repeat renal Doppler study Unchanged from prior report * Continue to monitor BMP - * Strict I&O's. ENDO - * No history of diabetes or thyroid disease. TSH normal. * BSGs per unit protocol. ISS --> gtt per unit policy. HEME - * Stable H&H. * Thrombocytopenia improved. ID - * No concerns for infectious ideologies at this point. LINES/IV ACCESS - * PIVs x2 DVT PROPHYLAXIS - * SCDs, SQ heparin Thank you for allowing us to participate in the care of this patient. Please refer to my attending physician's documentation for any further recommendations. (2) Hypertensive urgency: (3) Seizure: (4) Renal failure: (5) Encephalopathy acute: Supervising Physician Co-Signing Physician Notes I have personally evaluated and examined this patient. I agree with assessment and plan of Taiwo DAWSON. Patient was discussed in multidisciplinary rounds Increasing his Coreg to 12.5 mg today adding Aldactone 25 mg reviewed renal artery duplex, no evidence of stenosis added lisinopril yesterday however BUN and creatinine both worse will discontinue and only use Aldactone and increase beta-katrina, goal will be to optimize blood pressure below 150 today given changes consistent with PRERSS. Adding labetalol for systolics greater than 170 or diastolic greater than 105. CK continues to climb, discontinuing statin converting to Pravachol. Repeat MRIs obtained, increase signal in the occipital lobe suggesting press, Normal MRA. Added labetalol with parameters for breakthrough hypertension and is still requiring IV antihypertensives. I have personally spent 33 minutes of critical care time in the direct management of this patient. This is a life/limb threatening event. This includes time spent evaluating patient, direct bedside care, chart review, placing orders, interpretation of diagnostic studies, discussion with consultants, patient, and/or family members regarding treatment decisions, as well as other required patient management activities. This time is exclusive of all separately billable procedures, and teaching time and separate from and in addition to any other critical care service time. Subjective Patient is a 48-year-old male admitted for witnessed seizure. Patient was admitted and started on Keppra. Patient seen by neurology each day since admission. EEG was completed and showed slow waveforms but no epileptiform waves. No witnessed seizures since admission. No fever. No nausea or vomiting. MRI positive for subacute infarcts in the left thalamus and consistent with PRES. Carotid Doppler and MRA negative.Will continue to Increase oral medications for blood pressure Goal of less than 160. Patient stable for downgrade to telemetry. Review of Systems All systems reviewed & are unremarkable except as noted in HPI & below Physical Exam 2 Vital Signs (Past 24 Hours): Last Vital Signs Temp 36.6 C 08/09/18 05:00 Pulse 67 08/09/18 06:00 Resp 16 08/09/18 06:00 BP 152/104 H 08/09/18 06:00 Pulse Ox 97 08/09/18 06:00 Constitutional: Patient appears comfortable and cooperative no acute distress Eyes: Pupils equal round reactive to light. Conjugate gaze Respiratory: Lungs are clear to auscultation bilaterally. No wheezing shortness of breath or oxygen requirements.Breathing nonlaboredWith no use of axillary muscles Cardiovascular: Patient is in sinus rhythm on monitor. S1 and S2 auscultated. No murmur. Radial and pedal pulses +2 bilaterally. Gastrointestinal (Abdomen): Patient has Normoactive bowel sounds in all 4 quadrants.Abdomen is soft flat and nontender. Musculoskeletal: Strength is equal bilaterally in all 4 extremities. Patient is able to walk Laps In unit and transfer to chair. Neurologic: Patient is alert and oriented x3. Equal and symmetrical movement. No gait disturbances. PERRLA. Psychiatric: Patient is calm and cooperative Genitourinary: Patient is voiding without issue. No changes in urinary stream or color. _ (1) Renal failure Acute renal failure type: Chronic kidney disease stage: Renal failure chronicity: unspecified chronicity Qualified Code(s): N19 - Unspecified kidney failure
[2018-08-09] MEDS ORDERED: SPIRONOLACTONE 25 MG TAB PO ONE (08:05)
[2018-08-09] MEDS ORDERED: LABETALOL HCL IV 5 MG/ML 20ML IV PRN (08:46)
[2018-08-09] MEDS: CARVEDILOL 12.5 MG TAB PO SCH ×2 (08:51→20:47)
[2018-08-09] MEDS: AMLODIPINE BESYLATE 5 MG TAB PO SCH (08:52)
[2018-08-09] MEDS: ACETAMINOPHEN 500 MG TAB PO PRN (08:52)
[2018-08-09] MEDS: levETIRAcetam 500 MG TAB PO SCH ×2 (08:53→20:47)
[2018-08-09] MEDS: MULTIVITAMIN TAB PO SCH (08:53)
[2018-08-09] MEDS: DOCUSATE SODIUM 100 MG CAP PO SCH ×2 (08:53→20:47)
[2018-08-09] MEDS: ASPIRIN 81 MG ECTAB PO SCH (08:53)
--- NOTE | 2018-08-09 10:31 | Nephrology Progress Note ---
Date of Service August 09, 2018 Assessment & Plan (1) HANS (acute kidney injury): Patient with acute kidney injury likely due to ischemic ATN in setting of NSAIDs. Urine sediment showed a few muddy brown casts consistent with ATN. We do not have clear baseline. Creatinine up at 2.4 today. He has no hydronephrosis based on the renal duplex. CK is up trending although not had seizures recently. Encourage patient to drink enough fluids. Monitor daily BMP, avoid nephrotoxins. We discussed need to avoid NSAIDs completely going forward. (2) Hypertensive urgency: Patient with hypertensive urgency in setting of not taking medications. He has hypokalemia, renin aldosterone ratio pending. Blood pressure is better on amlodipine 10mg and Coreg 12.5mg bid. (3) Hypokalemia: Potassium is better today. He might need Aldactone if hypokalemia persists. (4) Seizure: Controlled on Keppra. Patient has some evidence of subacute infarcts on brain CT. MRA no significant stenosis. Subjective Patient seen in follow-up for acute kidney injury and hypertension. He feels better this morning denies any shortness of breath or pain. Creatinine is up at 2.4 today. His blood pressure is improving on oral meds. Review of Systems All systems reviewed & are unremarkable except as noted in HPI & below Physical Exam 2 Vital Signs (Past 24 Hours): Last Vital Signs Temp 36.7 C 08/09/18 08:01 Pulse 73 08/09/18 10:08 Resp 12 08/09/18 10:08 BP 135/102 H 08/09/18 10:08 Pulse Ox 97 08/09/18 10:08 Physical Exam: General exam: Appears comfortable, no acute distress HEENT: Pupils are equal and reactive to light Neck: No JVD, neck is supple trachea is midline Respiratory system: Clear breath sounds bilaterally. Gastrointestinal: Abdomen is soft, non distended, non tender, bowel sounds are present CVS: Regular rate and rhythm. No murmurs, rubs or gallops Musculoskeletal: No joint or muscle tenderness Extremities: Non tender, no edema, peripheral pulses are present Neuro: Oriented, no tremors, no focal neurological deficits Skin: No rashes Results & Data Laboratory Results CK 2905, potassium 3.7, creatinine 2.4, BUN of 26
[2018-08-09] MEDS: PRAVASTATIN SOD 10 MG TAB PO SCH (11:40)
--- NOTE | 2018-08-09 14:16 | Neurology Progress Note ---
Date of Service August 09, 2018 Assessment & Plan (1) Seizure: 1. seizure- would continue Keppra 500 mg BID for now- EEG with no seizure activity generalized slowing 2. MRI - acute infarct left thalamus and deep white matter just superior to the left lateral ventricle - Should be repeated do to poor imaging once patient is stable, possible related to PRES. ASA, no plavix at present due to decreased platelet count. Labs including esr, ezra to eval for vasculitis, ryan for hypercoag state. MRA head when more cooperative, repeat MRI in several weeks to look for resolution supportive of dx PRES 3.TTE- no ASD repeat no ASD 4. CK - 2905 ? if further hydration is needed may need to stop statin for now 5. aspirin 81 mg only at this time platlets today 124 6. blood pressure 160-180 at this point but would then try to optimize. Discussed with LIYA Castillo Treat headache symptomatically,no triptans should be used. no ultram. 8. PT/OT for discharge needs 9. optimize HTN, HLD, DM LDL <70 10. would check thiamine level and add thiamine -done 11. MRI brain/MRA PRES improved. follow up in neurology in 4-6 weeks after discharge Sapphire Novoa PAC schedule Pt seen and examined. No complaints, exam nonfocal. Imp possible PRES, repeat imaging in 2-3 weeks to see if resolution. Continue Keppra for sz, no obvious adverse effects. Tx risk factors, gradual resumption of normotension. Statin held as CK rising after an initial decline post sz. cont asa. Will follow with you. JAMIE Live MD Supervising Physician Co-Signing Physician Notes I have seen and discussed above patient with Dr Sapphire Live, neurology Subjective Preet is a 48 year old male who was at the [facility] in [place] when he had a seizure. He states he is homeless but does live with someone in the winter. He has had a headache for the past week. he had a witnessed seizure prior to the arrival of EMS and recovered from his seizure and then had another seizure in the ambulance. There is not a good description of the seizure event but EMS states all his extremities were moving. He was hypertensive and he was not drinking today. He was on blood pressure medication previously but has not seen a doctor in years. He is very restless due to the headache which he states is 8/ 10. He has had headaches in the past but "nothing like this" He states he has never had a seizure in the past and does not remember anything about the event. He does remember being in the ED. He is a 1/2 ppd smoker, occasional EtOH use, no other drugs. He is doing good today. He is not sure what the plan is for his care. 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 Today he states he thinks he just needs to go home. He does not want to go to rehab and he is hoping the medications can be covered by MD. He has had no additional symptoms and has been OOB with no issues. denies CP, SOB, abdominal pain, one sided weakness, numbness tingling, N, V. 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 5/5 bilaterally hip flex 5/5 bilaterall no pronator drift no bi pass on finger to nose Results & Data Laboratory Results Abnormal lab results 08/06/18 08/06/18 08/09/18 Range/Units 06:00 16:27 04:04 RBC 4.07 L (4.7-6.1) M/uL Hgb 12.6 L (14.0-18.0) g/dL Hct 37.3 L (42-52) % Plt Count 124 L (130-400) K/uL MPV 10.8 H (7.4-10.4) fL Immature Gran # (Auto) 0.03 H (0.00-0.02) K/uL Neut # (Auto) 7.53 H (1.4-6.5) K/uL [place] # (Auto) 0.74 H (0.11-0.59) K/uL Chloride (98-107) mmol/L BUN (7-18) mg/dl Creatinine (0.6-1.4) mg/dl Total Creatine Kinase (39-308) U/L Homocysteine 39.0 H (<11.4) UMOL/L U Lorazepam Cnf GC/MS 196 A (CUTOFF=50) NG/ML U OH-Midazolam Confirm 1090 A (CUTOFF=50) NG/ML 08/09/18 Range/Units 04:04 RBC (4.7-6.1) M/uL Hgb (14.0-18.0) g/dL Hct (42-52) % Plt Count (130-400) K/uL MPV (7.4-10.4) fL Immature Gran # (Auto) (0.00-0.02) K/uL Neut # (Auto) (1.4-6.5) K/uL [place] # (Auto) (0.11-0.59) K/uL Chloride 109 H (98-107) mmol/L BUN 26 H D (7-18) mg/dl Creatinine 2.43 H (0.6-1.4) mg/dl Total Creatine Kinase 2905 H (39-308) U/L Homocysteine (<11.4) UMOL/L U Lorazepam Cnf GC/MS (CUTOFF=50) NG/ML U OH-Midazolam Confirm (CUTOFF=50) NG/ML Diagnostic Findings MRA brain-No significant stenosis, occlusion, or aneurysm within the [place]. Normal study. MRI brain- Improved scan compared to the prior study in terms of resolution. Small subacute infarcts of the left thalamus and left superior parasagittal region. This is unchanged. Increased signal of the occipital lobes bilaterally suggestive of PRESS.
--- NOTE | 2018-08-09 18:49 | Hospitalist Progress Note ---
Date of Service August 09, 2018 Assessment & Plan (1) Seizure: Seizure/Hypertensive Emergency. Possible PRES Acute CVA --MRI: Acute/subacute infarcts involving the left thalamus and deep white matter just superior to the left lateral ventricle. Signal abnormalities within both occipital lobes left greater than right with equivocal restricted water diffusion. The findings could represent additional acute/subacute infarcts or PRESS. Frontal scalp lipoma --Head MRA:Grossly unremarkable vertebral basilar system. Probable multifocal narrowing of the middle cerebral arterial vasculature. Nondiagnostic evaluation of the anterior cerebral vasculature. --Carotid Doppler:No hemodynamically significant stenosis seen within the carotid arteries. --EEG:moderately diffusely abnormal eeg with no lateralizing features and without accompanying potentially epileptogenic discharges --ECHO: no ASD/VSD --Renal.a Doppler: No gross evidence for significant renal arterial stenotic change. --Repeat MRI/MRA: PRES improved --Off Cardene ggt --Continue Coreg, Amlodipine, aldactone --Labetalol PRN --Continue Keppra --Appreciate ICU team/ Nephrology help --Continue Aspirin, statin --May need to hold statin if CK continues to worsen --No plavix secondary to thrombocytopenia --Needs repeat Brain MRI as outpatient --Hypercoaguable work up pending --Work up for secondary HTN pending --Avoid Ultram/Triptans for headache Leukocytosis and elevated CK likely secondary to seizure Leukocytosis normalized Elevated Troponins likely 2/2 seizures and HTN Patient denies chest pain ECHO: no wall motion abnormality ECHO:?? specking pattern of LV myocardium--possible infiltrative disease such as amyloidosis May need fat pad biopsy (2) Renal failure: HANS (acute kidney injury): Likely due to Ishemic ATN in setting of NSAIDs. Cr:3.14>>>2.43 Avoid nephrotoxins as able Appreciate Nephrology Input Hypokalemia: Replace electrolytes as needed DVT Px: Heparin SQ Code Status Full Code Disposition: homeless patient reports he lives in [place] with female friend Susana Mack in winter time patient reports his mother lives in [place] Case management consulted Subjective Patient is seen and examined at bedside Offers No complaints Denies any headache, chest pain, dyspnea, dizziness, abd pain, focal weakness No family at bedside Physical Exam 2 Vital Signs (Past 24 Hours): Last Vital Signs Temp 36.7 C 08/09/18 16:01 Pulse 67 08/09/18 18:01 Resp 16 08/09/18 18:01 BP 149/104 H 08/09/18 18:01 Pulse Ox 97 08/09/18 18:01 Physical Exam: Physical Exam: Vitals signs as noted above General Appearance:Moderately built and nourished, no apparent distress Head: normocephalic, Atraumatic Eyes: normal inspection, EOMI Neck: supple, Trachea midline Respiratory/Chest: Decreased breath sounds, CTA Cardiovascular: S1, S2, No murmur Abdomen/GI:Soft, Non tender, Bowel sounds present Extremities/Musculoskelatal:normal inspection, no edema Neurologic/Psych:AAOX3, grossly no focal neurological deficits Skin: normal color, warm Results & Data Laboratory Results Short CBC 08/09/18 Range/Units 04:04 WBC 10.64 (4.8-10.8) K/uL Hgb 12.6 L (14.0-18.0) g/dL Hct 37.3 L (42-52) % Plt Count 124 L (130-400) K/uL BMP 08/09/18 04:04 Sodium 139 Potassium 3.7 Chloride 109 H Carbon Dioxide 24 BUN 26 H D Creatinine 2.43 H Glucose 89 Calcium 8.6 Cardiac Enzymes 08/09/18 Range/Units 04:04 Total Creatine Kinase 2905 H (39-308) U/L _ (1) Renal failure Acute renal failure type: Chronic kidney disease stage: Renal failure chronicity: unspecified chronicity Qualified Code(s): N19 - Unspecified kidney failure
[2018-08-10] MEDS: HEPARIN SOD 5,000 UNIT/0.5 ML VIAL SQ SCH ×3 (02:21→17:54)
[2018-08-10 04:42] LABS: Hematocrit (blood only) 37.2 % (42-52); Hemoglobin 12.7 g/dL (14.0-18.0); Mean Corpuscular Hgb Conc 34.1 g/dL (32-36); Mean Corpuscular Volume 91.6 fL (80-100); Platelet Count 135 K/uL (130-400); RDW Coefficient of Variation 12.9 % (11.5-14.5); RDW Standard Deviation 43.4 fL (36.4-46.3); Red Blood Count 4.06 M/uL (4.7-6.1); White Blood Count 10.41 K/uL (4.8-10.8)
[2018-08-10 05:00] LABS: Albumin Level 3.5 gm/dl (3.4-5.0); BUN Creatinine Ratio 10.8 (10-20); Calcium 8.6 mg/dl (8.5-10.1); Est GFR (African American) 32.1; Est GFR (Non-African American) 27.7; Potassium 3.9 mmol/L (3.5-5.1)
[2018-08-10 05:14] LABS: Bilirubin Direct 0.1 mg/dl (0-0.2); Bilirubin,Total 0.6 mg/dl (0.2-1); Total Protein 6.8 gm/dl (6.4-8.2)
--- NOTE | 2018-08-10 06:55 | Critical Care Progress Note ---
Date of Service August 10, 2018 Assessment & Plan (1) Admitted to intensive care unit: 48-year-old male presenting with seizures x2 with hypertensive urgency, and refractory hypertension. Patient is now alert and oriented. Blood pressure still hypertensive, Adjusting oral regimen For blood pressure goal. Will continue to monitor until transfer to telemetry. NEURO - * CAM ICU: NEGATIVE * Seizures: * 2 separate episodes with postictal status appreciated. * Carotid doppler negative for narrowing * TSH elevated, started on ASA and Lipitor But switched to Pravastatin Due to increase in creatinine kinase. * Continue Keppra 500 mg BID and prn ativan * CT of the head in the emergency department suggestive of possible subacute infarct. * MRI Repeat exam suggest small subacute infarcts in the left thalamus and consistent with press Elevated homocystine level, Will start on folic acid. * MRA Repeat exam negative for vascular abnormality. * Appreciate neurology consult. - thiamine started * Monitor closely through breakthrough seizure-like activity. * Will allow for permissive hypertension with pressures in the 140s-160s given presentation and concern for CVA. * Bubble study Negative for shunt * PT/OT ordered, f/u eval CARDIAC/VASCULAR - * Hypertensive emergency: * Nicardipine off * Cardiology consulted this a.m. for continued uncontrolled hypertensive state , Dr. Easton saw the patient, will Further manage control off his Herminio. * Continue Coreg 12.5, amlodipine, Aldactone. Holding lisinopril for HANS. PRN labetalol * Will allow for permissive hypertension With goal of systolic 140-160s * Monitor on telemetry. RESPIRATORY - * No history of pulmonary disease. No distress. * Will monitor for any changes. GI/NUTRITION - * Heart healthy diet. * Folic acid added for elevated homocystine level RENAL/LYTES - * Hypokalemia: - aggressive repletion and monitoring with BMPs * HANS: * Nephrology consulted, appreciate recs * No previous studies for baseline Cr/ BUN * Creatinine and BUN Slightly worsened today, Continuing to hold Lisinopril * Repeat renal Doppler study Unchanged from prior report * Continue to monitor With BMP - * Strict I&O's. ENDO - * No history of diabetes or thyroid disease. TSH normal. * BSGs per unit protocol. ISS --> gtt per unit policy. HEME - * Stable H&H. * Thrombocytopenia improved. ID - * No concerns for infectious ideologies at this point. LINES/IV ACCESS - * PIVs x2 DVT PROPHYLAXIS - * SCDs, SQ heparin Thank you for allowing us to participate in the care of this patient. Please refer to my attending physician's documentation for any further recommendations. (2) Hypertensive urgency: (3) Seizure: (4) Renal failure: (5) Encephalopathy acute: Supervising Physician Co-Signing Physician Notes I have personally evaluated and examined this patient. I agree with assessment and plan of Taiwo DAWSON. Patient was discussed in multidisciplinary rounds Patient has not required IV labetalol, still needs aggressive blood pressure control adding clonidine patch and bridging with prazosin in the short-term. Stable for downgrade adding cardiology consult to optimize blood pressure. We have maximized calcium channel katrina Coreg is likely optimized as heart rate is now in the 60s. On Aldactone. Subjective Patient is a 48-year-old male admitted for witnessed seizure. Patient was admitted and started on Keppra. Patient seen by neurology each day since admission. EEG was completed and showed slow waveforms but no epileptiform waves. No witnessed seizures since admission. No fever. No nausea or vomiting. MRI positive for subacute infarcts in the left thalamus and consistent with PRES. Carotid Doppler and MRA negative.Will continue to Increase oral medications for blood pressure Goal of less than 160. Patient stable for downgrade to telemetry. Okay to transfer this today. Review of Systems All systems reviewed & are unremarkable except as noted in HPI & below Constitutional: + body aches and + fatigue; no chills, no sweats, no weight loss and no weight gain Physical Exam 2 Vital Signs (Past 24 Hours): Last Vital Signs Temp 36.4 C L 08/10/18 04:51 Pulse 63 08/10/18 06:01 Resp 20 08/10/18 06:01 BP 167/97 H 08/10/18 06:01 Pulse Ox 98 08/10/18 06:01 Constitutional: cooperative and comfortable; no acute distress and no altered mental status Eyes: PERRL, conjunctivae normal, anicteric sclerae Neck: trachea midline, no thyromegaly Respiratory: normal respiratory effort, lungs clear to auscultation normal respiratory effort, able to speak in complete sentences and symmetric chest movement Auscultation: lungs clear to auscultation bilaterally and + bronchial breath sounds Cardiovascular: RRR, no murmur, no edema Rate/Rhythm: regular rate and regular rhythm Heart Sounds: normal S1 and normal S2 Palpation: no thrill and no heave Vessels: normal peripheral pulses Extremities: normal capillary refill; no edema Gastrointestinal (Abdomen): normal bowel sounds, soft, nontender, no hepatosplenomegaly Musculoskeletal: no cyanosis or clubbing, extremities motor strength 5/5 Head/Neck/Chest: normocephalic Skin: no rashes, warm and dry Neurologic: PERRL, EOMI, accommodation nl, no face palsy, no dysarthria Cranial Nerves: PERRL and EOM intact bilaterally Psychiatric: A+Ox3, euthymic affect Genitourinary: no testicular masses, no penis abnormality Lymphatic: no cervical or axillary lymphadenopathy Results & Data Laboratory Results Laboratory Results - last 24 hr 08/06/18 08/06/18 08/10/18 10:41 11:15 04:16 WBC 10.41 RBC 4.06 L Hgb 12.7 L Hct 37.2 L MCV 91.6 MCH 31.3 MCHC 34.1 RDW Std Deviation 43.4 RDW Coeff of Zahraa 12.9 Plt Count 135 MPV 11.0 H Sodium Potassium Chloride Carbon Dioxide Anion Gap BUN Creatinine Est Cr Clr Drug Dosing Est GFR ( Amer) Est GFR (Non-Af Amer) BUN/Creatinine Ratio Glucose Calcium Total Bilirubin Direct Bilirubin AST ALT Alkaline Phosphatase Total Creatine Kinase Total Protein Albumin Triglycerides Cholesterol LDL Cholesterol, Calc VLDL Cholesterol, Calc HDL Cholesterol Cholesterol/HDL Ratio Renin Activity 8.09 H Aldosterone 10 Ur Random Creatinine 76 Ur [place] Metanephrines 152 U Normetanephrine 291 U Total Metanephrines 443 08/10/18 04:16 WBC RBC Hgb Hct MCV MCH MCHC RDW Std Deviation RDW Coeff of Zahraa Plt Count MPV Sodium 139 Potassium 3.9 Chloride 109 H Carbon Dioxide 26 Anion Gap 4.0 BUN 29 H Creatinine 2.65 H Est Cr Clr Drug Dosing 36.0 Est GFR ( Amer) 32.1 Est GFR (Non-Af Amer) 27.7 BUN/Creatinine Ratio 10.8 Glucose 87 Calcium 8.6 Total Bilirubin 0.6 Direct Bilirubin 0.1 AST 57 H ALT 33 Alkaline Phosphatase 80 Total Creatine Kinase 2455 H Total Protein 6.8 Albumin 3.5 Triglycerides 169 H Cholesterol 195 LDL Cholesterol, Calc 115 VLDL Cholesterol, Calc 34 HDL Cholesterol 46 Cholesterol/HDL Ratio 4 Renin Activity Aldosterone Ur Random Creatinine Ur [place] Metanephrines U Normetanephrine U Total Metanephrines Medications Administered Home Medications Unobtainable 08/05/18 [History Confirmed 08/05/18] Active Medications Acetaminophen (Tylenol) 1,000 mg PO Q8H PRN PRN Reason: Pain Stop: 09/05/18 13:14 Last Admin: 08/09/18 08:52 Dose: 1,000 mg Amlodipine Besylate (Norvasc) 10 mg PO [facility] Stop: 09/07/18 08:59 Last Admin: 08/10/18 07:31 Dose: 10 mg Aspirin (Ecotrin Ectab) 81 mg PO [facility] Stop: 09/05/18 10:29 Last Admin: 08/10/18 08:56 Dose: 81 mg Carvedilol (Coreg) 12.5 mg PO BID [facility] Stop: 09/08/18 08:59 Last Admin: 08/10/18 07:31 Dose: 12.5 mg Docusate Sodium (Colace) 100 mg PO BID [facility] Stop: 09/07/18 09:14 Last Admin: 08/10/18 08:55 Dose: 100 mg Folic Acid (Folvite) 1 mg PO [facility] Stop: 09/09/18 10:59 Last Admin: 08/10/18 12:09 Dose: 1 mg Heparin Sodium (Porcine) (Heparin Sodium (Porcine)) 5,000 units SQ Q8H [facility] Stop: 09/05/18 09:59 Last Admin: 08/10/18 10:28 Dose: 5,000 units Lorazepam (Ativan) 2 mg in 4 mls @ 4 mls/min IV Q2H PRN PRN Reason: Breakthrough Seizures Stop: 09/04/18 20:41 Labetalol HCl (Normodyne) 10 mg IV Q4H PRN PRN Reason: Blood Pressure - High Stop: 09/08/18 08:45 Last Admin: 08/09/18 14:41 Dose: 10 mg Levetiracetam (Keppra) 500 mg PO BID [facility] Stop: 09/06/18 08:59 Last Admin: 08/10/18 08:56 Dose: 500 mg Multivitamins (Multivitamin Tab) 1 tab PO [facility] Stop: 09/06/18 08:59 Last Admin: 08/10/18 08:55 Dose: 1 tab Ondansetron HCl (Zofran) 4 mg IV Q6H PRN PRN Reason: Nausea Stop: 09/04/18 20:41 Pravastatin [facility]ach[facility]) [facility] Stop: 09/08/18 09:29 Last Admin: 08/10/18 08:55 Dose: 10 mg Spironolactone (Aldactone) 25 mg PO QAM [facility] Stop: 09/09/18 08:59 Last Admin: 08/10/18 08:55 Dose: 25 mg _ (1) Renal failure Acute renal failure type: Chronic kidney disease stage: Renal failure chronicity: unspecified chronicity Qualified Code(s): N19 - Unspecified kidney failure
[2018-08-10] MEDS: CARVEDILOL 12.5 MG TAB PO SCH ×2 (07:31→20:17)
[2018-08-10] MEDS: AMLODIPINE BESYLATE 5 MG TAB PO SCH (07:31)
[2018-08-10] MEDS: SPIRONOLACTONE 25 MG TAB PO SCH (08:55)
[2018-08-10] MEDS: MULTIVITAMIN TAB PO SCH (08:55)
[2018-08-10] MEDS: DOCUSATE SODIUM 100 MG CAP PO SCH ×2 (08:55→20:17)
[2018-08-10] MEDS: PRAVASTATIN SOD 10 MG TAB PO SCH (08:55)
[2018-08-10] MEDS: ASPIRIN 81 MG ECTAB PO SCH (08:56)
[2018-08-10] MEDS: levETIRAcetam 500 MG TAB PO SCH ×2 (08:56→20:17)
[2018-08-10] MEDS ORDERED: PRAZOSIN HCL 1 MG CAP PO SCH (10:00)
[2018-08-10] MEDS ORDERED: cloNIDine HCL 0.1 MG/24 HR TRANSDERM SYS TD SCH (10:00)
[2018-08-10] MEDS ORDERED: TERAZOSIN HCL 1 MG CAP PO ONE (10:00)
[2018-08-10] MEDS: FOLIC ACID 1 MG TAB PO SCH (12:09)
[2018-08-10 12:56] LABS: Creatinine Ur 76 mg/dL (20-320); Total Metanephrine 443 mcg/g cr (155-608)
--- NOTE | 2018-08-10 13:39 | Communication Note ---
Date of Service: August 10, 2018 I have seen Mr. Sosa today in consultation examined him briefly and reviewed his charts along with the hospitalist and environmental compliance engineer progress note and yesterday's neurology note. Currently his examination is nonfocal he has had no further seizures his electrolyte abnormalities and CPK elevations are being addressed appropriately by the environmental compliance engineer and the internal medicine group as blood pressure is being allowed to gradually come down into a more normal range allowing for some permissive hypertension in the setting of a possible cerebrovascular accident in addition to the effects of PRES He is currently on Keppra and the dose is been stable without further seizures and EEGs have shown nothing other than a mild generalized encephalopathy He is pending transfer to the general floor and then hopefully will be discharged for follow-up in a few days At this point neurology is going to sign off the case. He should be seen in our office in 4-6 weeks by Sapphire Novoa PA-C and by Sapphire Live MD at which point hopefully his Keppra dose will be reduced acting on the assumption of course that he will have had no further seizures Recommendations are also to have a repeat MRI done in about 2 weeks to see if the effects of the PRES have begun to resolve and I assume this will be scheduled at the time of discharge. Guilherme Reed MD
--- NOTE | 2018-08-10 14:20 | Consultation Report ---
DATE OF CONSULTATION: 08/10/2018 INPATIENT CARDIOLOGY CONSULTATION CONSULTATION REQUESTED BY: Javier Ch PA-C REASON FOR CONSULTATION: Hypertensive management. HISTORY OF PRESENT ILLNESS: Mr. Sosa is a very pleasant 48-year-old gentleman who presented to [facility] Emergency Department originally on 08/05/2018 after a witnessed seizure. Upon presentation, the patient was loaded with Keppra and also found to have hypertensive emergency in the setting of noncompliance to his outpatient medical regimen. He was also found to have acute kidney injury and Nephrology has been on board, and after several days in the intensive care unit, the patient is clinically improving. Unfortunately, his blood pressure has still been very hard to control and cardiology has been asked to see him. Currently, the patient states he feels well and remains anxious for discharge. He denies any complaints. Specifically, denied any chest pain, shortness of breath, palpitations, lightheadedness, dizziness, or syncope. PAST SURGICAL HISTORY: Denies. MEDICAL ILLNESSES: 1. Hypertension. 2. Medical noncompliance. FAMILY HISTORY: Denies any premature coronary artery disease or sudden cardiac . SOCIAL HISTORY: Denies tobacco use, occasional alcohol. Denies any recreational drug use. The patient is not . Unfortunately, he is a homeless of the [place] War. He is currently staying with a friend in [place] to the winter and he states he has not seen a doctor for many years. REVIEW OF SYSTEMS: As per HPI. All other review of systems reviewed and negative at this time. ALLERGIES: No known drug allergies. MEDICATIONS: Currently: 1. Aspirin 81 mg daily. 2. Amlodipine 10 mg daily. 3. Keppra b.i.d. 4. Carvedilol 12.5 mg b.i.d. 5. Spironolactone 25 mg daily. 6. Pravastatin 10 mg daily. 7. Folic acid. 8. Multivitamin. PHYSICAL EXAMINATION: VITALS: Temperature 36.7, pulse 77, respiratory rate 12, blood pressure 166/104. GENERAL: Awake, alert, oriented x3 in no acute distress, unkempt in appearance. HEENT: Normocephalic, atraumatic. Pupils equal, round, react to light and accommodation. Extraocular muscles intact. Anicteric sclerae. Moist mucous membranes. NECK: No JVD, no bruit. CARDIOVASCULAR: Regular. Positive S4. Normal S1 and S2. No S3. No murmurs or rubs. PULMONARY: Clear to auscultation bilaterally. No rales, rhonchi, or wheezing. ABDOMEN: Bowel sounds x4, soft. No rebound, guarding, tenderness. No organomegaly. EXTREMITIES: No clubbing, cyanosis or edema. +2 pedal pulses bilaterally. SKIN: Warm and dry. TEST RESULTS: A 2D echocardiogram performed 08/06/2018 resulted as normal LV chamber size with moderate concentric LVH, questionable speckling pattern of the LV myocardium which would suggest a possible infiltrative disease i.e., amyloidosis, normal LV systolic function, EF 60-65%, no segmental left ventricular wall motion abnormalities are noted, grade 1 diastolic dysfunction, no significant valvular pathology, borderline dilation of the aortic root with normal sized ascending aorta. Mild left atrial enlargement. Intact interatrial septum. LABORATORY DATA: Laboratory studies performed today, sodium 139, potassium 3.9, BUN 29, creatinine 2.65. IMPRESSION: 1. Uncontrolled hypertension. 2. Hypertensive heart disease. 3. History of medical noncompliance. 4. Homelessness. 5. New seizures. 6. Multiple subacute infarcts of the brain. A renal artery duplex showed no significant stenosis. 7. Severe hypokalemia on presentation. RECOMMENDATIONS: It was my pleasure to see Mr. Sosa in consultation today. The patient definitely has hypertensive heart disease and strokes at such a young age. Unfortunately, obviously his homelessness does complicate matters, so my goal in terms of his antihypertensive regimen would be to make medications as simple as possible to follow and make sure [facility] are [facility], which [facility]. So to that end, I will start him on terazosin 2 mg x1 now to see how his blood pressure does. He is already on spironolactone and ideally Maxzide would be stronger antihypertensive, but given his profound hypokalemia on presentation that is obviously not an option at this point. PARRISH and ARB are not an option right now either given his acute kidney injury and our nephrology colleagues are following. I will continue his amlodipine and Coreg. I would avoid clonidine in this gentleman given the significant rebound effects and risk for subsequent stroke given his history and we will continue to follow him with you while he is here and will be happy to see him as an outpatient as well.
[2018-08-10] MEDS ORDERED: CHECK CLONIDINE PATCH PLACEMENT SCH (16:00)
--- NOTE | 2018-08-10 16:44 | Hospitalist Progress Note ---
Date of Service August 10, 2018 Assessment & Plan (1) Seizure: Seizure/Hypertensive Emergency. Possible PRES Acute CVA --MRI: Acute/subacute infarcts involving the left thalamus and deep white matter just superior to the left lateral ventricle. Signal abnormalities within both occipital lobes left greater than right with equivocal restricted water diffusion. The findings could represent additional acute/subacute infarcts or PRESS. Frontal scalp lipoma --Head MRA:Grossly unremarkable vertebral basilar system. Probable multifocal narrowing of the middle cerebral arterial vasculature. Nondiagnostic evaluation of the anterior cerebral vasculature. --Carotid Doppler:No hemodynamically significant stenosis seen within the carotid arteries. --EEG:moderately diffusely abnormal eeg with no lateralizing features and without accompanying potentially epileptogenic discharges --ECHO: no ASD/VSD --Renal.a Doppler: No gross evidence for significant renal arterial stenotic change. --Repeat MRI/MRA: PRES improved --Off Cardene ggt --Continue Coreg, Amlodipine, aldactone, Added Terazosin --Labetalol PRN --Continue Keppra --Appreciate ICU team/ Nephrology help --Continue Aspirin, statin --May need to hold statin if CK continues to worsen --No plavix secondary to thrombocytopenia --Needs repeat Brain MRI as outpatient in 2-4 weeks --Hypercoaguable work up pending --Noted elevated Homocysteine levels in setting of HANS, Continue folic acid, B 1 levels pending --Work up for secondary HTN done --Avoid Ultram/Triptans for headache Leukocytosis and elevated CK likely secondary to seizure Leukocytosis normalized Elevated Troponins likely 2/2 seizures and HTN Patient denies chest pain ECHO: no wall motion abnormality ECHO:?? specking pattern of LV myocardium--possible infiltrative disease such as amyloidosis May need fat pad biopsy--Work up as outpatient (2) Renal failure: HANS (acute kidney injury): Likely due to Ishemic ATN in setting of NSAIDs. Cr:3.14>>>2.43>>2.65 Avoid nephrotoxins as able Appreciate Nephrology Input Hypokalemia: Replace electrolytes as needed DVT Px: Heparin SQ Code Status Full Code Disposition: homeless patient reports he lives in [place] with female friend Susana Mack in winter time patient reports his mother lives in [place] Case management consulted Subjective Patient is seen and examined at bedside BP is variable today Offers No complaints Denies any headache, chest pain, dyspnea, dizziness Physical Exam 2 Vital Signs (Past 24 Hours): Last Vital Signs Temp 36.4 C L 08/10/18 14:58 Pulse 73 08/10/18 16:25 Resp 18 08/10/18 14:58 BP 151/94 H 08/10/18 14:58 Pulse Ox 98 08/10/18 14:58 Physical Exam: Physical Exam: Vitals signs as noted above General Appearance:Moderately built and nourished, no apparent distress Head: normocephalic, Atraumatic Eyes: normal inspection, EOMI Neck: supple, Trachea midline Respiratory/Chest: Decreased breath sounds, CTA Cardiovascular: S1, S2, No murmur Abdomen/GI:Soft, Non tender, Bowel sounds present Extremities/Musculoskelatal:normal inspection, no edema Neurologic/Psych:AAOX3, grossly no focal neurological deficits Skin: normal color, warm Results & Data Laboratory Results Short CBC 08/10/18 Range/Units 04:16 WBC 10.41 (4.8-10.8) K/uL Hgb 12.7 L (14.0-18.0) g/dL Hct 37.2 L (42-52) % Plt Count 135 (130-400) K/uL BMP 08/10/18 04:16 Sodium 139 Potassium 3.9 Chloride 109 H Carbon Dioxide 26 BUN 29 H Creatinine 2.65 H Glucose 87 Calcium 8.6 Cardiac Enzymes 08/10/18 Range/Units 04:16 Total Creatine Kinase 2455 H (39-308) U/L Liver Function 08/10/18 Range/Units 04:16 Total Bilirubin 0.6 (0.2-1) mg/dl Direct Bilirubin 0.1 (0-0.2) mg/dl AST 57 H (15-37) U/L ALT 33 (12-78) U/L Alkaline Phosphatase 80 (45-117) U/L Albumin 3.5 (3.4-5.0) gm/dl _ (1) Renal failure Acute renal failure type: Chronic kidney disease stage: Renal failure chronicity: unspecified chronicity Qualified Code(s): N19 - Unspecified kidney failure
--- NOTE | 2018-08-10 17:54 | Nephrology Progress Note ---
Date of Service August 10, 2018 Assessment & Plan (1) HANS (acute kidney injury): Patient with acute kidney injury likely due to ischemic ATN in setting of NSAIDs. Urine sediment showed a few muddy brown casts consistent with ATN. We do not have clear baseline. Creatinine up at 2.6 today. He has no hydronephrosis based on the renal duplex. CK is up trending although not had seizures recently. Encourage patient to drink enough fluids. Monitor daily BMP, avoid nephrotoxins. We discussed need to avoid NSAIDs completely going forward. (2) Hypertensive urgency: Patient with hypertensive urgency in setting of not taking medications. He has hypokalemia, renin high, aldosterone normal. Blood pressure is better on amlodipine 10mg, aldactone and Coreg 12.5mg bid. (3) Hypokalemia: Potassium is better today. he does not hyperaldosteronism (4) Seizure: Controlled on Keppra. Patient has some evidence of subacute infarcts on brain CT. MRA no significant stenosis. Neuro following Subjective Patient seen in follow-up for acute kidney injury and hypertension. He feels better this morning denies any shortness of breath or pain. Creatinine is up at 2.6 today. His blood pressure is improving on oral meds. Review of Systems All systems reviewed & are unremarkable except as noted in HPI & below Constitutional: + fatigue and + weakness Physical Exam 2 Vital Signs (Past 24 Hours): Last Vital Signs Temp 36.4 C L 08/10/18 14:58 Pulse 73 08/10/18 16:25 Resp 18 08/10/18 14:58 BP 151/94 H 08/10/18 14:58 Pulse Ox 98 08/10/18 14:58 Physical Exam: General exam: Appears comfortable, no acute distress HEENT: Pupils are equal and reactive to light Neck: No JVD, neck is supple trachea is midline Respiratory system: Clear breath sounds bilaterally. Gastrointestinal: Abdomen is soft, non distended, non tender, bowel sounds are present CVS: Regular rate and rhythm. No murmurs, rubs or gallops Musculoskeletal: No joint or muscle tenderness Extremities: Non tender, no edema, peripheral pulses are present Neuro: Oriented, no tremors, no focal neurological deficits Skin: No rashes Results & Data Laboratory Results k3.9, cr 2.6
[2018-08-10] MEDS: TERAZOSIN HCL 1 MG CAP PO SCH (20:17)
[2018-08-11] MEDS: HEPARIN SOD 5,000 UNIT/0.5 ML VIAL SQ SCH ×3 (01:46→19:27)
[2018-08-11 06:13] LABS: BUN Creatinine Ratio 13.6 (10-20); Calcium 8.8 mg/dl (8.5-10.1); Creatinine Clr Calc Pharmacy 36.1 ml/min; Est GFR (African American) 32.2; Est GFR (Non-African American) 27.8; Potassium 3.8 mmol/L (3.5-5.1)
[2018-08-11] MEDS: FOLIC ACID 1 MG TAB PO SCH (08:07)
[2018-08-11] MEDS: levETIRAcetam 500 MG TAB PO SCH ×2 (08:07→20:46)
[2018-08-11] MEDS: ASPIRIN 81 MG ECTAB PO SCH (08:08)
[2018-08-11] MEDS: AMLODIPINE BESYLATE 5 MG TAB PO SCH (08:08)
[2018-08-11] MEDS: PRAVASTATIN SOD 10 MG TAB PO SCH (08:08)
[2018-08-11] MEDS: DOCUSATE SODIUM 100 MG CAP PO SCH ×2 (08:08→20:46)
[2018-08-11] MEDS: MULTIVITAMIN TAB PO SCH (08:08)
[2018-08-11] MEDS: SPIRONOLACTONE 25 MG TAB PO SCH (08:08)
[2018-08-11] MEDS: CARVEDILOL 12.5 MG TAB PO SCH (08:08)
--- NOTE | 2018-08-11 08:41 | Nephrology Progress Note ---
Date of Service August 11, 2018 Assessment & Plan (1) HANS (acute kidney injury): Patient with acute kidney injury likely due to ischemic ATN in setting of NSAIDs. Urine sediment showed a few muddy brown casts consistent with ATN. We do not have clear baseline creatinine; may be as low as high 1's but again not definite. Creatinine increased recently to plateau at 2.6 past 48 hrs. He has no hydronephrosis based on the renal duplex. CK is up trending although not had seizures recently. Encourage patient to drink enough fluids. Monitor daily BMP, avoid nephrotoxins. -cont nsaid avoidance -cont work at bp control (2) Hypertensive urgency: Patient with hypertensive urgency in setting of not taking medications. He had hypokalemia, renin high, aldosterone normal. Blood pressure is better on amlodipine 10mg, aldactone and Coreg 12.5mg bid. -recommend increasing coreg to 18.75 mg bid versus further observation (3) Seizure: Controlled on Keppra. Patient has some evidence of subacute infarcts on brain CT. MRA no significant stenosis. Neuro following Subjective Patient seen in follow-up for acute kidney injury and hypertension. He feels better this morning denies any shortness of breath or chest/abd/head pain; denies focal numbness/weakness or acute vision changes. Physical Exam 2 Vital Signs (Past 24 Hours): Last Vital Signs Temp 36.4 C L 08/11/18 07:29 Pulse 73 08/11/18 07:32 Resp 18 08/11/18 07:29 BP 156/98 H 08/11/18 07:29 Pulse Ox 96 08/11/18 07:29 Constitutional: well developed and well nourished on RA, A&0 x 3 Eyes: EOM intact bilaterally ENMT: Ears: no external ear abnormality Nose: no external nose abnormality Mouth: + dry oral mucous membranes Neck: no nuchal rigidity Respiratory: normal respiratory effort Auscultation: + diminished lung sounds Cardiovascular: RRR, no murmur, no edema Gastrointestinal (Abdomen): Inspection/Auscultation: normal bowel sounds Percussion/Palpation: abdomen soft; abdomen nontender Musculoskeletal: Extremities: strength 5/5 throughout Skin: no rashes, warm and dry lipoma versus contusion between his eyes Neurologic: sheppard, fluent speech, no tremor Psychiatric: Orientation: alert, oriented x 3 and + guarded Genitourinary: no ramirez Results & Data Laboratory Results Abnormal lab results 08/11/18 Range/Units 05:25 BUN 36 H (7-18) mg/dl Creatinine 2.64 H (0.6-1.4) mg/dl
--- NOTE | 2018-08-11 11:17 | Cardiology Progress Note ---
Date of Service August 11, 2018 Assessment & Plan (1) Hypertensive urgency: As mentioned above I think we should try to keep this patient's medical regimen as simple as possible. Nephrology has recommended an increase in his carvedilol to 18.75 mg twice daily however, instead of half dosing and having the patient cut the pills I think it is best that he be started on carvedilol 25 mg twice daily. I think his blood pressure requires this high of a dose and is more simple than half dosing. (2) Seizure: (3) Encephalopathy acute: (4) HANS (acute kidney injury): Subjective The patient has no cardiac complaints this morning. Nephrology's follow-up is appreciated. I would like to try to keep this patient's medication regimen as simple as possible. Therefore I am going to increase his carvedilol to 25 mg twice daily instead of half dosing. Physical Exam Vital Signs (Past 24 Hours): Last Vital Signs Temp 36.4 C L 08/11/18 07:29 Pulse 73 08/11/18 07:32 Resp 18 08/11/18 07:29 BP 156/98 H 08/11/18 07:29 Pulse Ox 96 08/11/18 07:29 Physical Exam: General: no acute distress and stated age Head: normocephalic, no masses, lesions, tenderness or abnormalities Eyes: conjunctiva are pink and non-injected, sclera clear Neck: supple, no adenopathy, no bruits, normal jugular venous pulse, no hepatojugular reflux Chest: normal shape and normal respiratory effort Lungs: clear to auscultation and percussion Cardiac Exam: - regular rate & rhythm, no murmurs gallops or rubs - normal S1, normal S2 Pulses: 2(+) throughout Abdomen: abdomen soft, non-tender, no abnormal masses and no hepatosplenomegaly Musculoskeletal: no gait disturbance, no joint inflammation, no deforming arthritis Extremities: no edema and no cyanosis Neuro: grossly normal exam Results & Data Laboratory Results Laboratory Results - last 24 hr 08/06/18 08/11/18 11:15 05:25 Sodium 139 Potassium 3.8 Chloride 107 Carbon Dioxide 27 Anion Gap 5.0 BUN 36 H Creatinine 2.64 H Est Cr Clr Drug Dosing 36.1 Est GFR ( Amer) 32.2 Est GFR (Non-Af Amer) 27.8 BUN/Creatinine Ratio 13.6 Glucose 90 Calcium 8.8 Ur Random Creatinine 76 Ur Dolliver Metanephrines 152 U Normetanephrine 291 U Total Metanephrines 443 Medications Administered Current Inpatient Medications Acetaminophen (Tylenol) 1,000 mg PO Q8H PRN PRN Reason: Pain Stop: 09/05/18 13:14 Last Admin: 08/09/18 08:52 Dose: 1,000 mg Amlodipine Besylate (Norvasc) 10 mg PO [facility] Stop: 09/07/18 08:59 Last Admin: 08/11/18 08:08 Dose: 10 mg Aspirin (Ecotrin Ectab) 81 mg PO [facility] Stop: 09/05/18 10:29 Last Admin: 08/11/18 08:08 Dose: 81 mg Carvedilol (Coreg) 25 mg PO BID [facility] Stop: 09/10/18 20:59 Docusate Sodium (Colace) 100 mg PO BID [facility] Stop: 09/07/18 09:14 Last Admin: 08/11/18 08:08 Dose: 100 mg Folic Acid (Folvite) 1 mg [facility] Stop: 09/09/18 10:59 Last Admin: 08/11/18 08:07 Dose: 1 mg Heparin Sodium (Porcine) (Heparin Sodium (Porcine)) 5,000 units SQ Q8H [facility] Stop: 09/05/18 09:59 Last Admin: 08/11/18 10:44 Dose: 5,000 units Lorazepam (Ativan) 2 mg in 4 mls @ 4 mls/min IV Q2H PRN PRN Reason: Breakthrough Seizures Stop: 09/04/18 20:41 Labetalol HCl (Normodyne) 10 mg IV Q4H PRN PRN Reason: Blood Pressure - High Stop: 09/08/18 08:45 Last Admin: 08/09/18 14:41 Dose: 10 mg Levetiracetam (Keppra) 500 mg PO BID [facility] Stop: 09/06/18 08:59 Last Admin: 08/11/18 08:07 Dose: 500 mg Multivitamins (Multivitamin Tab) 1 tab PO [facility] Stop: 09/06/18 08:59 Last Admin: 08/11/18 08:08 Dose: 1 tab Ondansetron HCl (Zofran) 4 mg IV Q6H PRN PRN Reason: Nausea Stop: 09/04/18 20:41 Pravastatin Sodium (Pravachol) 10 mg PO [facility] Stop: 09/08/18 09:29 Last Admin: 08/11/18 08:08 Dose: 10 mg Spironolactone (Aldactone) 25 mg PO [facility] Stop: 09/09/18 08:59 Last Admin: 08/11/18 08:08 Dose: 25 mg Terazosin HCl (Hytrin) 2 mg PO [facility] Stop: 09/09/18 20:59 Last Admin: 08/10/18 20:17 Dose: 2 mg
--- NOTE | 2018-08-11 16:53 | Hospitalist Progress Note ---
Date of Service August 11, 2018 Assessment & Plan (1) Seizure: Seizure/Hypertensive Emergency. Possible PRES Acute CVA --MRI: Acute/subacute infarcts involving the left thalamus and deep white matter just superior to the left lateral ventricle. Signal abnormalities within both occipital lobes left greater than right with equivocal restricted water diffusion. The findings could represent additional acute/subacute infarcts or PRESS. Frontal scalp lipoma --Head MRA:Grossly unremarkable vertebral basilar system. Probable multifocal narrowing of the middle cerebral arterial vasculature. Nondiagnostic evaluation of the anterior cerebral vasculature. --Carotid Doppler:No hemodynamically significant stenosis seen within the carotid arteries. --EEG:moderately diffusely abnormal eeg with no lateralizing features and without accompanying potentially epileptogenic discharges --ECHO: no ASD/VSD --Renal.a Doppler: No gross evidence for significant renal arterial stenotic change. --Repeat MRI/MRA: PRES improved --Off Cardene ggt --Continue Coreg, Amlodipine, aldactone, Added Terazosin --Labetalol PRN --Continue Keppra --Appreciate ICU team/ Nephrology/Cardiology help --Continue Aspirin, statin --May need to hold statin if CK continues to worsen --No plavix secondary to thrombocytopenia --Needs repeat Brain MRI as outpatient in 2-4 weeks --Hypercoaguable work up pending --Noted elevated Homocysteine levels in setting of HANS, Continue folic acid, B 1 levels pending --Work up for secondary HTN done --Avoid Ultram/Triptans for headache --Coreg increased to 25mg BID for better BP control Leukocytosis and elevated CK likely secondary to seizure Leukocytosis normalized Elevated Troponins likely 2/2 seizures and HTN Patient denies chest pain ECHO: no wall motion abnormality ECHO:?? specking pattern of LV myocardium--possible infiltrative disease such as amyloidosis May need fat pad biopsy--Work up as outpatient (2) Renal failure: HANS (acute kidney injury): Likely due to Ishemic ATN in setting of NSAIDs. Unknown baseline Cr:3.14>>>2.43>>2.64 Cr levels stable Avoid nephrotoxins as able Appreciate Nephrology Input Hypokalemia: Replace electrolytes as needed DVT Px: Heparin SQ Code Status Full Code Disposition: homeless patient reports he lives in [place] with female friend Susana Mack in winter time patient reports his mother lives in [place] Case management consulted Patient currently not interested in Rehab placement Subjective Patient is seen and examined at bedside No new complaints BP still elevated but asymptomatic Denies any headache, chest pain, dyspnea, dizziness Physical Exam 2 Vital Signs (Past 24 Hours): Last Vital Signs Temp 36.9 C 08/11/18 15:20 Pulse 78 08/11/18 15:20 Resp 20 08/11/18 15:20 BP 160/105 H 08/11/18 15:20 Pulse Ox 96 08/11/18 15:20 Physical Exam: Physical Exam: Vitals signs as noted above General Appearance:Moderately built and nourished, no apparent distress Head: normocephalic, Atraumatic Eyes: normal inspection, EOMI Neck: supple, Trachea midline Respiratory/Chest: Decreased breath sounds, CTA Cardiovascular: S1, S2, No murmur Abdomen/GI:Soft, Non tender, Bowel sounds present Extremities/Musculoskelatal:normal inspection, no edema Neurologic/Psych:AAOX3, grossly no focal neurological deficits Skin: normal color, warm Results & Data Laboratory Results [facility] 08/11/18 05:25 Sodium 139 Potassium 3.8 Chloride 107 Carbon Dioxide 27 BUN 36 H Creatinine 2.64 H Glucose 90 Calcium 8.8 _ (1) Renal failure Acute renal failure type: Chronic kidney disease stage: Renal failure chronicity: unspecified chronicity Qualified Code(s): N19 - Unspecified kidney failure
[2018-08-11] MEDS: TERAZOSIN HCL 1 MG CAP PO SCH (20:45)
[2018-08-11] MEDS: CARVEDILOL 25 MG TAB PO SCH (20:45)
[2018-08-12] MEDS: HEPARIN SOD 5,000 UNIT/0.5 ML VIAL SQ SCH ×3 (02:40→17:37)
[2018-08-12 06:20] LABS: BUN Creatinine Ratio 12.2 (10-20); Calcium 8.9 mg/dl (8.5-10.1); Creatinine Clr Calc Pharmacy 36.7 ml/min; Est GFR (African American) 32.8; Est GFR (Non-African American) 28.3; Potassium 3.9 mmol/L (3.5-5.1)
[2018-08-12] MEDS: AMLODIPINE BESYLATE 5 MG TAB PO SCH (08:01)
[2018-08-12] MEDS: SPIRONOLACTONE 25 MG TAB PO SCH (08:01)
[2018-08-12] MEDS: FOLIC ACID 1 MG TAB PO SCH (08:01)
[2018-08-12] MEDS: MULTIVITAMIN TAB PO SCH (08:01)
[2018-08-12] MEDS: levETIRAcetam 500 MG TAB PO SCH ×2 (08:01→20:44)
[2018-08-12] MEDS: CARVEDILOL 25 MG TAB PO SCH ×2 (08:02→20:44)
[2018-08-12] MEDS: PRAVASTATIN SOD 10 MG TAB PO SCH (08:02)
[2018-08-12] MEDS: ASPIRIN 81 MG ECTAB PO SCH (08:02)
[2018-08-12] MEDS: DOCUSATE SODIUM 100 MG CAP PO SCH ×2 (10:16→20:45)
--- NOTE | 2018-08-12 15:57 | Hospitalist Progress Note ---
Date of Service August 12, 2018 Assessment & Plan (1) Seizure: Seizure/Hypertensive Emergency. Possible PRES Acute CVA --MRI: Acute/subacute infarcts involving the left thalamus and deep white matter just superior to the left lateral ventricle. Signal abnormalities within both occipital lobes left greater than right with equivocal restricted water diffusion. The findings could represent additional acute/subacute infarcts or PRESS. Frontal scalp lipoma --Head MRA:Grossly unremarkable vertebral basilar system. Probable multifocal narrowing of the middle cerebral arterial vasculature. Nondiagnostic evaluation of the anterior cerebral vasculature. --Carotid Doppler:No hemodynamically significant stenosis seen within the carotid arteries. --EEG:moderately diffusely abnormal eeg with no lateralizing features and without accompanying potentially epileptogenic discharges --ECHO: no ASD/VSD --Renal.a Doppler: No gross evidence for significant renal arterial stenotic change. --Repeat MRI/MRA: PRES improved --Off Cardene ggt --Continue Coreg, Amlodipine, aldactone, Added Terazosin --Labetalol PRN --Continue Keppra --Appreciate ICU team/ Nephrology/Cardiology help --Continue Aspirin, statin --May need to hold statin if CK continues to worsen --No plavix secondary to thrombocytopenia --Needs repeat Brain MRI as outpatient in 2-4 weeks --Hypercoaguable work up pending --Noted elevated Homocysteine levels in setting of HANS, Continue folic acid, B 1 levels pending --Work up for secondary HTN done --Avoid Ultram/Triptans for headache --Continue Coreg 25mg BID --BP better controlled. Continue Current medications Leukocytosis and elevated CK likely secondary to seizure Leukocytosis normalized Elevated Troponins likely 2/2 seizures and HTN Patient denies chest pain ECHO: no wall motion abnormality ECHO:?? specking pattern of LV myocardium--possible infiltrative disease such as amyloidosis May need fat pad biopsy--Work up as outpatient (2) Renal failure: HANS (acute kidney injury): Likely due to Ishemic ATN in setting of NSAIDs. Unknown baseline Cr:3.14>>>2.43>>2.60 Cr levels stable Avoid nephrotoxins as able Appreciate Nephrology Input Hypokalemia: Replace electrolytes as needed DVT Px: Heparin SQ Code Status Full Code Disposition: homeless patient reports he lives in [place] with female friend Susana Mack in winter time patient reports his mother lives in [place] Patient currently not interested in Rehab placement Case management working on discharge plan Subjective Patient is seen and examined at bedside Eager to get discharged No new complaints BP better today Denies any headache, chest pain, dyspnea, dizziness Physical Exam 2 Vital Signs (Past 24 Hours): Last Vital Signs Temp 36.7 C 08/12/18 14:00 Pulse 71 08/12/18 14:00 Resp 18 08/12/18 14:00 BP 138/86 08/12/18 14:00 Pulse Ox 98 08/12/18 14:00 Physical Exam: Physical Exam: Vitals signs as noted above General Appearance:Moderately built and nourished, no apparent distress Head: normocephalic, Atraumatic Eyes: normal inspection, EOMI Neck: supple, Trachea midline Respiratory/Chest: Decreased breath sounds, CTA Cardiovascular: S1, S2, No murmur Abdomen/GI:Soft, Non tender, Bowel sounds present Extremities/Musculoskelatal:normal inspection, no edema Neurologic/Psych:AAOX3, grossly no focal neurological deficits Skin: normal color, warm Results & Data Laboratory Results [facility] 08/12/18 05:36 Sodium 140 Potassium 3.9 Chloride 107 Carbon Dioxide 26 BUN 32 H Creatinine 2.60 H Glucose 92 Calcium 8.9 _ (1) Renal failure Acute renal failure type: Chronic kidney disease stage: Renal failure chronicity: unspecified chronicity Qualified Code(s): N19 - Unspecified kidney failure
[2018-08-12] MEDS: TERAZOSIN HCL 1 MG CAP PO SCH (20:43)
[2018-08-13] MEDS: HEPARIN SOD 5,000 UNIT/0.5 ML VIAL SQ SCH ×2 (02:46→11:37)
[2018-08-13 07:33] LABS: BUN Creatinine Ratio 11.5 (10-20); Calcium 8.9 mg/dl (8.5-10.1); Creatinine Clr Calc Pharmacy 36.7 ml/min; Est GFR (African American) 32.8; Est GFR (Non-African American) 28.3; Potassium 4.1 mmol/L (3.5-5.1)
--- NOTE | 2018-08-13 07:44 | Nephrology Progress Note ---
Date of Service August 13, 2018 Assessment & Plan (1) Renal insufficiency: unknown baseline creatinine. has been hovering mid 2's past since 08/09; ischemic ATN this admission in setting of nsaid use. muddy brown casts on admission urine specimen> will recheck; unclear if this creatinine is his new baseline or if he will cont to improve; -get prot/creat ratio -repeat UACM -daily bmp -will need renal f/u at discharge in CKD clinic Present on Admission?: Yes (2) Hypertension: had HTN urgency on admission after not taking bp meds; secondary w/u negative Goal blood pressure for now is 140-150s systolic, w/ gradual improvement in control of days/weeks to SBP 120s-130s ideally. He has been at/near this goal past 24 hrs He had hypokalemia, renin high, aldosterone normal; no pheo; no MICHELE. -current Blood pressure regimen: amlodipine 10, spironolactone 25, terazosin 2 , coreg 25 bid Present on Admission?: Yes Physical Exam 2 Vital Signs (Past 24 Hours): Last Vital Signs Temp 36.4 C L 08/13/18 04:34 Pulse 60 08/13/18 04:34 Resp 20 08/13/18 04:34 BP 150/87 H 08/13/18 04:34 Pulse Ox 97 08/13/18 04:34 Constitutional: well developed and well nourished Eyes: EOM intact bilaterally ENMT: Ears: no external ear abnormality Nose: no external nose abnormality Mouth: + dry oral mucous membranes Neck: no nuchal rigidity Respiratory: normal respiratory effort Auscultation: + diminished lung sounds Cardiovascular: RRR, no murmur, no edema Gastrointestinal (Abdomen): Inspection/Auscultation: normal bowel sounds Percussion/Palpation: abdomen soft; abdomen nontender Musculoskeletal: Extremities: strength 5/5 throughout Skin: no rashes, warm and dry Psychiatric: Orientation: alert, oriented x 3 and + guarded Results & Data Laboratory Results Abnormal lab results 08/07/18 08/13/18 Range/Units 09:12 05:56 BUN 30 H (7-18) mg/dl Creatinine 2.60 H (0.6-1.4) mg/dl Vitamin B1 <6 L (8-30) nmol/L _ (1) Hypertension Hypertension type: unspecified Qualified Code(s): I10 - Essential (primary) hypertension
[2018-08-13] MEDS: SPIRONOLACTONE 25 MG TAB PO SCH (08:58)
[2018-08-13] MEDS: MULTIVITAMIN TAB PO SCH (08:58)
[2018-08-13] MEDS: PRAVASTATIN SOD 10 MG TAB PO SCH (08:58)
[2018-08-13] MEDS: CARVEDILOL 25 MG TAB PO SCH (08:58)
[2018-08-13] MEDS: levETIRAcetam 500 MG TAB PO SCH (08:58)
[2018-08-13] MEDS: ASPIRIN 81 MG ECTAB PO SCH (08:58)
[2018-08-13] MEDS: AMLODIPINE BESYLATE 5 MG TAB PO SCH (08:58)
[2018-08-13] MEDS: FOLIC ACID 1 MG TAB PO SCH (08:58)
[2018-08-13 11:05] LABS: Appearance Urine Clear (Clear); Bacteria Urine Automated Negative (Negative); Bilirubin Urine Negative (Negative); Blood Urine Negative (Negative); Color Urine Yellow; Glucose Urine UA Trace (Negative); Ketones Urine Negative (Negative); Leukocyte Esterase Urine Negative (Negative); Nitrite Urine Negative (Negative); Protein Urine 1+ (Negative); RBC Urine Automated 0-4 /hpf (0-4); Specific Gravity Urine 1.014 (1.000-1.030); Urobilinogen Urine Negative (Negative); pH Urine 5.5 (4.5-7.5)
[2018-08-13] MEDS: DOCUSATE SODIUM 100 MG CAP PO SCH (11:37)
[2018-08-13 11:46] LABS: Total Protein Urine Random 59.8 mg/dl (0-11.9)
--- NOTE | 2018-08-13 12:10 | Hospitalist Progress Note ---
Date of Service August 13, 2018 Assessment & Plan (1) Seizure: Seizure/Hypertensive Emergency. Possible PRES Acute CVA --MRI: Acute/subacute infarcts involving the left thalamus and deep white matter just superior to the left lateral ventricle. Signal abnormalities within both occipital lobes left greater than right with equivocal restricted water diffusion. The findings could represent additional acute/subacute infarcts or PRESS. Frontal scalp lipoma --Head MRA:Grossly unremarkable vertebral basilar system. Probable multifocal narrowing of the middle cerebral arterial vasculature. Nondiagnostic evaluation of the anterior cerebral vasculature. --Carotid Doppler:No hemodynamically significant stenosis seen within the carotid arteries. --EEG:moderately diffusely abnormal eeg with no lateralizing features and without accompanying potentially epileptogenic discharges --ECHO: no ASD/VSD --Renal.a Doppler: No gross evidence for significant renal arterial stenotic change. --Repeat MRI/MRA: PRES improved --Off Cardene ggt --Continue Coreg, Amlodipine, aldactone, Added Terazosin --Labetalol PRN --Continue Keppra --Appreciate ICU team/ Nephrology/Cardiology help --Continue Aspirin, statin --May need to hold statin if CK continues to worsen --No plavix secondary to thrombocytopenia --Needs repeat Brain MRI as outpatient in 2-4 weeks --Hypercoaguable work up pending --Noted elevated Homocysteine levels in setting of HANS, Continue folic acid, B 1 levels pending --Work up for secondary HTN done --Avoid Ultram/Triptans for headache --Continue Coreg 25mg BID Leukocytosis and elevated CK likely secondary to seizure Leukocytosis normalized Elevated Troponins likely 2/2 seizures and HTN Patient denies chest pain ECHO: no wall motion abnormality ECHO:?? specking pattern of LV myocardium--possible infiltrative disease such as amyloidosis May need fat pad biopsy--Work up as outpatient (2) Renal failure: HANS (acute kidney injury): Likely due to Ishemic ATN in setting of NSAIDs. Unknown baseline Cr:3.14>>>2.43>>2.60 Cr levels stable Avoid nephrotoxins as able Appreciate Nephrology Input Hypokalemia: Replace electrolytes as needed DVT Px: Heparin SQ Code Status Full Code Disposition: homeless patient reports he lives in [place] with female friend Susana Mack in winter time patient reports his mother lives in [place] Patient refuses Rehab placement Case management consulted Subjective Patient is seen and examined at bedside No new complaints Renal function stable Denies any headache, chest pain, dyspnea, dizziness Physical Exam 2 Vital Signs (Past 24 Hours): Last Vital Signs Temp 36.4 C L 08/13/18 11:24 Pulse 69 08/13/18 11:24 Resp 16 08/13/18 11:24 BP 159/92 H 08/13/18 11:24 Pulse Ox 99 08/13/18 11:24 Physical Exam: Physical Exam: Vitals signs as noted above General Appearance:Moderately built and nourished, no apparent distress Head: normocephalic, Atraumatic Eyes: normal inspection, EOMI Neck: supple, Trachea midline Respiratory/Chest: Decreased breath sounds, CTA Cardiovascular: S1, S2, No murmur Abdomen/GI:Soft, Non tender, Bowel sounds present Extremities/Musculoskelatal:normal inspection, no edema Neurologic/Psych:AAOX3, grossly no focal neurological deficits Skin: normal color, warm Results & Data Laboratory Results [facility] 08/13/18 05:56 Sodium 139 Potassium 4.1 Chloride 106 Carbon Dioxide 26 BUN 30 H Creatinine 2.60 H Glucose 88 Calcium 8.9 Urine 08/13/18 Range/Units 10:48 Urine Color Yellow Urine Appearance Clear (Clear) Urine pH 5.5 (4.5-7.5) Ur Specific [place] 1.014 (1.000-1.030) Urine Protein 1+ H (Negative) Urine Glucose (UA) Trace H (Negative) _ (1) Renal failure Acute renal failure type: Chronic kidney disease stage: Renal failure chronicity: unspecified chronicity Qualified Code(s): N19 - Unspecified kidney failure
--- NOTE | 2018-08-13 12:25 | Discharge Summary ---
Date of Service August 13, 2018 Admission HPI Per Admitting Provider History as per ED notes, ER physician, and patient As per ED History and Physical "The patient is a 48 year old male who presents to the Emergency Room with complaints of intermittent seizures. Per EMS, the patient was at the [facility] in [place] when he had a seizure. They note the patient is homeless. EMS states the patient's friend told them he had a headache for the past week. EMS states the friend's of the patient state the patient did not have any trauma today. EMS states the patient had recovered from his seizure and then had another seizure in the ambulance. EMS states the patient was moving all his extremities in the ambulance. EMS notes the patient was very hypertensive and he was not drinking today. EMS states the patient denied any chest pain or abdominal pain. EMS states they gave the patient 2 Versed MMA FIGH[employer]. EMS notes the patient stated he smokes a pack a day. HPI is limited because the patient is sleeping." As per ED physician, patient had second seizure in the ED. Patient has been given Keppa 1000 mg IV by ED physician. Also noted to be hypertensive and initially 235/116 when seen by hospitalist blood pressure 209/132 Patient able to speak to hospitalist and offer some history but has trouble with concentration. able to follow directions Patient reports not seeing a doctor in years. denies being on medication. denies alcohol abuse. denies history of alcohol withdrawal. denies history of strokes. denies history of seizures. denies recreational drugs. denies tobacco. denies allergies or family history of of health problems Admission Exam Per Admitting Provider Vital Signs (Past 24 Hours): Last Vital Signs Pulse 90 08/05/18 18:35 Resp 19 08/05/18 18:35 BP 209/132 H 08/05/18 18:35 Pulse Ox 98 08/05/18 18:35 Eyes: PERRL, conjunctivae normal, anicteric sclerae normal visual tabares by confrontation and EOM intact bilaterally ENMT: external ear and nose normal, oropharynx normal Neck: normal visual inspection and trachea midline Respiratory: normal respiratory effort, lungs clear to auscultation Cardiovascular: RRR, no murmur, no edema Gastrointestinal (Abdomen): normal bowel sounds, soft, nontender, no hepatosplenomegaly Musculoskeletal: Head/Neck/Chest: normocephalic and head atraumatic Neurologic: PERRL, EOMI, accommodation nl, no face palsy, no dysarthria Psychiatric: Orientation: alert and oriented to person Principal Diagnosis Discharge Information Discharge Diagnosis Seizure Hypertensive Emergency Possible PRES Acute CVA Ischemic ATN Discharge Goals Decrease discomfort,Improve function,Improve disease control Discharge Activity Limitations Resume your previous activity Discharge Data Allergies Allergy/AdvReac Type Severity Reaction Status Date / Time No Known Allergies Allergy Unverified 08/05/18 21:03 Consultations 08/05/18 18:46 ED Decision to Admit Stat 08/05/18 20:05 Consult Case Management - Discharge Planning Routine Consult Case Management - Discharge Planning Routine Consult Nephrology Stat Consult Neurology Stat 08/06/18 04:33 Consult Supervisor [employer] Routine 08/06/18 04:45 Consult Case Management - Discharge Planning Routine 08/10/18 08:36 Consult Cardiology Routine Procedures Performed MRI Brain: 1. Significantly compromised study secondary to motion artifact 2. Acute/subacute infarcts involving the left thalamus and deep white matter just superior to the left lateral ventricle 3. Signal abnormalities within both occipital lobes left greater than right with equivocal restricted water diffusion. The findings could represent additional acute/subacute infarcts or PRESS. 4. Frontal scalp lipoma 5. A follow-up MRI is recommended given the abnormalities described above and the technical limitations of the current study. Head MRA: 1. Near nondiagnostic study due to considerable patient motion. 2. Grossly unremarkable vertebral basilar system. 3. Probable multifocal narrowing of the middle cerebral arterial vasculature. 4. Nondiagnostic evaluation of the anterior cerebral vasculature. Renal Artery Doppler: 1. Limited study due to the patient's inability to cooperate. 2. Echogenic renal cortices bilaterally suggesting renal insufficiency. 2. No evidence for hydronephrosis. 3. Nondiagnostic Doppler evaluation of the renal arterial vasculature Carotid Doppler: No hemodynamically significant stenosis seen within the carotid arteries. Ordered Studies 08/05/18 16:20 CT head/brain wo con Stat 08/06/18 04:45 MR angio head wo con Stat MR brain wo con Stat 08/06/18 05:04 US duplex renal artery Urgent 08/06/18 07:21 US carotid doppler BI Stat 08/08/18 10:03 US duplex renal artery Routine 08/08/18 15:01 MR angio head wo con Routine MR brain wo con Routine Hospital Course (1) Seizure: Seizure/Hypertensive Emergency. Possible PRES Acute CVA --MRI: Acute/subacute infarcts involving the left thalamus and deep white matter just superior to the left lateral ventricle. Signal abnormalities within both occipital lobes left greater than right with equivocal restricted water diffusion. The findings could represent additional acute/subacute infarcts or PRESS. Frontal scalp lipoma --Head MRA:Grossly unremarkable vertebral basilar system. Probable multifocal narrowing of the middle cerebral arterial vasculature. Nondiagnostic evaluation of the anterior cerebral vasculature. --Carotid Doppler:No hemodynamically significant stenosis seen within the carotid arteries. --EEG:moderately diffusely abnormal eeg with no lateralizing features and without accompanying potentially epileptogenic discharges --ECHO: no ASD/VSD --Renal.a Doppler: No gross evidence for significant renal arterial stenotic change. --Repeat MRI/MRA: PRES improved --Off Cardene ggt --Continue Coreg, Amlodipine, aldactone, Added Terazosin --Labetalol PRN --Continue Keppra --Appreciate ICU team/ Nephrology/Cardiology help --Continue Aspirin, statin --May need to hold statin if CK continues to worsen --No plavix secondary to thrombocytopenia --Needs repeat Brain MRI as outpatient in 2-4 weeks --Hypercoaguable work up pending --Noted elevated Homocysteine levels in setting of HANS, Continue folic acid, B 1 levels pending --Work up for secondary HTN done --Avoid Ultram/Triptans for headache --Continue Coreg 25mg BID Leukocytosis and elevated CK likely secondary to seizure Leukocytosis normalized Elevated Troponins likely 2/2 seizures and HTN Patient denies chest pain ECHO: no wall motion abnormality ECHO:?? specking pattern of LV myocardium--possible infiltrative disease such as amyloidosis May need fat pad biopsy--Work up as outpatient (2) Renal failure: HANS (acute kidney injury): Likely due to Ishemic ATN in setting of NSAIDs. Unknown baseline Cr:3.14>>>2.43>>2.60 Cr levels stable Avoid nephrotoxins as able Appreciate Nephrology Input Hypokalemia: Replace electrolytes as needed DVT Px: Heparin SQ Code Status Full Code Disposition: homeless patient reports he lives in [place] with female friend Susana Mack in winter time patient reports his mother lives in [place] Patient refuses Rehab placement Case management consulted Total Time Total Time Spent Total Time Spent (In Minutes): 42 minutes Total Time Includes: Examination of the Patient, Discharge Planning, Medication Reconciliation, Communication With Other Providers and Other Discharge Plan Discharge Items Patient Disposition: Home - Self-Care Reason For Visit: SEIZURE, HYPERTENSIVE EMERGENCY Discharge Diagnosis: Seizure Hypertensive Emergency Possible PRES Acute CVA Ishemic ATN Discharge Goals: Decrease discomfort, Improve disease control and Improve function Activity: Resume your previous activity Exercise/Sports: Gradually increase as tolerated Non-emergency contact: Primary Care Provider, [employer] [facility] and Neurologist Call non-emergency contact if: you have any medication questions, your symptoms worsen, your pain is not controlled, your pain is worsening, your pain is unusual for you, your pain is concerning for you and you have a fever Diet: Heart Healthy Addtl Provider Instructions: Follow up with your Primary Care Physician at [place] in 1 week as advised Follow up with your Neurologist Sapphire Novoa PA-C in in 4-6 weeks Follow up with your Neurologist / in 2- 4 weeks Get Repeat MRI Brain in 2 weeks as per your Neurologist recommendations Take medications regularly as advised Seek immediate medical attention if your symptoms reoccur or worsen Prescriptions: New carvedilol 25 mg Tablet 25 mg PO BID 30 Days Qty: 60 RF: 0 levetiracetam [Keppra] 500 mg Tablet 500 mg PO BID 30 Days Qty: 60 RF: 0 terazosin 1 mg Capsule 2 mg PO HS 30 Days Qty: 60 RF: 0 amlodipine [Norvasc] 5 mg Tablet 10 mg PO QAM 30 Days Qty: 60 RF: 0 aspirin [Ecotrin Low Strength] 81 mg Tablet,Delayed Release (Dr/Ec) 81 mg PO QAM 30 Days Qty: 30 RF: 0 spironolactone 25 mg Tablet 25 mg PO QAM 30 Days Qty: 30 RF: 0 pravastatin 10 mg Tablet 10 mg PO QAM 30 Days Qty: 30 RF: 0 folic acid 1 mg Tablet 1 mg PO QAM 30 Days Qty: 30 RF: 0 No Action Unobtainable RF: 0 Stand-Alone Forms: [facility] Discharge Orders: Discharge Order (Routine); Ordered 08/13/18 Ordered By: Roberto Cid Admission Data Admit Date/Time: 08/05/18 19:15 Attending Provider: Roberto Cid Admit Provider: Ranjith Pulido Primary Care Provider: PCP,NO Other Providers: Ranjith Pulido ; Gilbert Benson ; Sapphire Live ; Brad Membreno ; Eddie Hsu Service: Telemetry Other Interventions: Discharge Summary Assessment (RN) Last Done: 08/13/18 12:56 Pending Studies at Discharge: Yes Studies:: Hypercoaguable Work up DC Date/Time DO NOT enter until pt leaves facility: 08/13/18 13:21
[2018-08-14 14:02] LABS: Anti Nuclear Antibody Screen NEGATIVE (NEGATIVE); Anti-Thrombin III Activity 161 % activity (80-120); B2 Glycoprotein IgA <9 SAU (<=20); B2 Glycoprotein IgG <9 SGU (<=20); B2 Glycoprotein IgM <9 SMU (<=20); Lupus Anticoagulant Positive (Negative); Protein S Functional(Activity) 164 % (70-150)
== END 2018-08-13 13:21 | disposition home or self-care (01) | DRG 70 ==
LOC: ED 16:13 → 2S 19:15 → SUATTDRO 19:15 → 2S 19:52 → 1E 08-06 03:44 → 2N 08-10 12:14